=== PATIENT | male | born 1935 | race Caucasian/White ===

== ENCOUNTER → 2018-05-09 | Outpatient (REF) | payer MEDICARE | LOC: M LAB REF 15:50 | DX: L08.9 Local infection of the skin and subcutaneous tissue, unspecified (principal) | CPT/HCPCS: 87186 ==

== ENCOUNTER → 2018-11-09 | Outpatient (REF) | payer MEDICARE ==
[~2018-11-09] MED LIST: /PANT40TA OR; ACET65TA OR; Bupropion Hcl PO; GLUC1000 OR; HUMUINJ SC; HYDR25TA6 OR; INSULANT SC; LIPI10TA OR; LISI20TA5 OR; LISI40TA OR; NIACPOW39 PO; NIASPAN ER PO; PLAV75TA2 OR; WELL100T OR
== END ==
LOC: M LAB REF 15:56
PROVIDERS: ATTEND Nurse Practitioner Family
DX: L08.9 Local infection of the skin and subcutaneous tissue, unspecified (principal)

== ENCOUNTER → 2023-06-06 | Outpatient (REF) | payer MEDICARE ==
[~2023-06-06] MED LIST changes: -/PANT40TA OR; +PROT1TAB2 OR
[2023-06-06 18:50] LABS: APPEARANCE, URINE CLOUDY (CLEAR); BACTERIA, URINE AUTO NEGATIVE (NEGATIVE); BILIRUBIN, URINE AUTO NEGATIVE (NEGATIVE); BLOOD, URINE BLOOD NEGATIVE (NEGATIVE); COLOR, URINE YELLOW (YELLOW); GLUCOSE, URINE (UA) AUTO 1+ mg/dL (NEGATIVE); KETONE, URINE AUTO TRACE mg/dL (NEGATIVE); LEUKOCYTE ESTERASE, URINE AUTO 3+ (NEGATIVE); NITRITE, URINE AUTO NEGATIVE (NEGATIVE); PROTEIN, URINE AUTO 2+ mg/dL (NEGATIVE); RBC, URINE AUTO 23 /HPF (0-3); SPECIFIC GRAVITY URINE AUTO 1.018 (1.002-1.035); SQUAMOUS EPITHELIAL CELL UR AU 3 /HPF (0-6); UROBILINOGEN, URINE AUTO 0.2 mg/dL (0.0-2.0); WBC, URINE AUTO TNTC /HPF (0-3)
== END ==
LOC: M SMT 17:11
PROVIDERS: ATTEND Physician Assistant
DX: N39.0 Urinary tract infection, site not specified (principal)

== ENCOUNTER → 2023-10-08 | Outpatient (CLI) | payer MEDICARE | LOC: M RAD 10:44 | PROVIDERS: ATTEND Physician Assistant Medical | DX: H54.61 Unqualified visual loss, right eye, normal vision left eye (principal) ==

== ENCOUNTER 2024-02-26 19:50 | Inpatient (IN) | payer MEDICARE ==
[~2024-02-26] VITALS: Ht 172.7 cm; Wt 72.7 kg
[2024-02-26] MEDS: NS 1,000 ML IV ONE (20:31)
[2024-02-26 21:02] LABS: BASO # 0.1 10^3/uL (0.0-0.2); BASO % 0.6 % (0.0-1.0); EOS # 0.3 10^3/uL (0.0-0.5); EOS % 1.8 % (0.0-3.0); HEMATOCRIT 35.1 % (42.0-52.0); LYMPH # 1.1 10^3/uL (1.5-5.0); LYMPH % 7.6 % (24.0-44.0); MEAN CORPUSCULAR HEMOGLOBIN 29.7 pg (27.0-33.0); MEAN CORPUSCULAR HGB CONC 34.2 g/dl (32.0-36.5); MEAN CORPUSCULAR VOLUME 86.9 fl (80.0-96.0); MONO # 1.1 10^3/uL (0.0-0.8); MONO % 7.2 % (2.0-8.0); NEUTROPHILS # 12.2 10^3/uL (1.5-8.5); NEUTROPHILS % 82.3 % (36.0-66.0); PLATELET COUNT, AUTOMATED 339 10^3/uL (150-450); RED BLOOD COUNT 4.04 10^6/uL (4.30-6.10); WHITE BLOOD COUNT 14.8 10^3/uL (4.0-10.0)
[2024-02-26 21:02] LABS: ALBUMIN 2.8 G/DL (3.2-5.2); ALKALINE PHOSPHATASE 130 U/L (46-116); ALT/SGPT 16 U/L (7.0-40); AST/SGOT 74 U/L (<34); BILIRUBIN,DIRECT 0.2 MG/DL (<0.4); BILIRUBIN,TOTAL 0.9 MG/DL (0.3-1.2); BLOOD UREA NITROGEN 28 MG/DL (9-23); CALCIUM LEVEL 8.8 MG/DL (8.3-10.6); CARBON DIOXIDE LEVEL 24 MMOL/L (20-31); CHLORIDE LEVEL 97 MMOL/L (98-107); CK-MB VALUE MASS < 1.0 NG/ML (<3.6); CPK CREATINE PHOSPHOKINASE 64 U/L (46-171); CREATININE FOR GFR 1.23 MG/DL (0.70-1.30); GLOMERULAR FILTRATION RATE 59.4 (>35); GLUCOSE, FASTING 261 MG/DL (74-106); LIPASE 25 U/L (12-53); MB/CK RELATIVE INDEX 1.56 (< OR =4); POTASSIUM SERUM 5.3 MMOL/L (3.5-5.1); SODIUM LEVEL 133 MMOL/L (136-145); TOTAL PROTEIN 6.6 G/DL (5.7-8.2)
[2024-02-26 21:43] LABS: CK-MB VALUE MASS < 1.0 NG/ML (<3.6); CPK CREATINE PHOSPHOKINASE 49 U/L (46-171); MB/CK RELATIVE INDEX 2.04 (< OR =4)
[2024-02-26 22:40] LABS: INR 1.13; PROTHROMBIN TIME 14.1 SECONDS (12.5-14.5)
[2024-02-26] MEDS ORDERED: LIDOCAINE W/EPINEPHRINE 1% 20ML VIAL As Ordered ONE (22:40)
[2024-02-26] MEDS: LIDOCAINE W/EPINEPHRINE 1% 20ML VIAL SC ONE (22:46)
[2024-02-27] MEDS ORDERED: DEXTROSE 50% 50ML SYRINGE IV PRN (00:25)
[2024-02-27] MEDS ORDERED: GLUCOSE 4 GM CHEW PO PRN (00:25)
[2024-02-27] MEDS ORDERED: GLUCAGON INJ 1MG VIAL SC PRN (00:25)
[2024-02-27] MEDS: NS 500 ML IV ONE (00:35)
[2024-02-27] MEDS: ACETAMINOPHEN TAB 650MG DOSE (2X325MG) PO ONE (00:36)
[2024-02-27] MEDS ORDERED: FARX1TAB3 PO (00:38)
[2024-02-27] MEDS ORDERED: BRIL90TA PO (00:38)
[2024-02-27] MEDS ORDERED: B-12100010 PO (00:38)
[2024-02-27] MEDS ORDERED: FERR324T21 PO (00:38)
[2024-02-27] MEDS ORDERED: BUPR150T12 PO (00:38)
[2024-02-27] MEDS ORDERED: ASPI81TA26 PO (00:38)
[2024-02-27] MEDS ORDERED: METO1TAB32 PO (00:38)
[2024-02-27] MEDS ORDERED: VITA1CAP25 PO (00:38)
[2024-02-27] MEDS ORDERED: ATOR1TAB19 PO (00:38)
[2024-02-27] MEDS ORDERED: SPIR-10 PO (00:38)
[2024-02-27] MEDS ORDERED: FURO40TA2 PO (00:38)
[2024-02-27] MEDS ORDERED: ENTR1TAB PO (00:38)
[2024-02-27] MEDS ORDERED: TRAZ-186 PO (00:42)
[2024-02-27] MEDS ORDERED: NOVOINJ3 INJ (00:42)
[2024-02-27] MEDS ORDERED: INSULANT INJ (00:42)
[2024-02-27] MEDS ORDERED: SODI1TAB6 PO (00:42)
[2024-02-27] MEDS ORDERED: PRES10CA2 PO (00:42)
[2024-02-27] MEDS ORDERED: METF10004 PO (00:42)
[2024-02-27] MEDS ORDERED: TAMS1CAP17 PO (00:42)
[2024-02-27] MEDS ORDERED: HOME MED LIST COMPLETE! XX SCH (00:45)
[2024-02-27] MEDS: HEPARIN SOD (PORCINE) 5000UNITS/ML 1ML VIAL/SYRINGE SQ SCH (06:08)
[2024-02-27] MEDS ORDERED: SPIRONOLACTONE 12.5MG PER 1/2 TABLET PO SCH (09:00)
[2024-02-27] MEDS ORDERED: MAALOX 30 ML SUSP *UDC PO PRN (09:40)
[2024-02-27] MEDS: ASPIRIN 81MG ENTERIC TABLET PO SCH (09:45)
[2024-02-27] MEDS: INSULIN LISPRO (NovoLOG) PER UNIT SC SCH ×2 (09:45→20:13)
[2024-02-27] MEDS: ATORVASTATIN 10 MG TAB PO SCH (09:45)
[2024-02-27] MEDS: TICAGRELOR 90 MG TABLET (BRILINTA) PO SCH (09:45)
[2024-02-27] MEDS: FUROSEMIDE 40 MG TAB PO SCH (09:46)
[2024-02-27] MEDS: METOPROLOL SUCC *XL* 25MG TAB (TopROL *XL*) PO SCH (09:46)
[2024-02-27] MEDS: SODIUM CHLORIDE 1 GM TAB PO SCH (09:47)
[2024-02-27] MEDS: buPROPion **XL** TABLET 150MG (WELLBUTRIN XL) PO SCH (09:47)
[2024-02-27] MEDS: ENTRESTO 24-26MG TABLET (SACUBITRIL/VALSARTAN) PO SCH (09:47)
[2024-02-27 11:05] LABS: BASO # 0.1 10^3/uL (0.0-0.2); BASO % 0.8 % (0.0-1.0); EOS # 0.3 10^3/uL (0.0-0.5); EOS % 2.3 % (0.0-3.0); HEMATOCRIT 37.4 % (42.0-52.0); HEMOGLOBIN 12.4 g/dl (13.5-17.5); LYMPH # 1.4 10^3/uL (1.5-5.0); MEAN CORPUSCULAR HEMOGLOBIN 29.5 pg (27.0-33.0); MEAN CORPUSCULAR HGB CONC 33.2 g/dl (32.0-36.5); MEAN CORPUSCULAR VOLUME 88.8 fl (80.0-96.0); MONO # 0.7 10^3/uL (0.0-0.8); MONO % 6.2 % (2.0-8.0); NEUTROPHILS # 9.2 10^3/uL (1.5-8.5); NEUTROPHILS % 78.1 % (36.0-66.0); PLATELET COUNT, AUTOMATED 342 10^3/uL (150-450); RED BLOOD COUNT 4.21 10^6/uL (4.30-6.10); WHITE BLOOD COUNT 11.8 10^3/uL (4.0-10.0)
[2024-02-27 11:26] LABS: CALCIUM LEVEL 8.4 MG/DL (8.3-10.6); CREATININE FOR GFR 1.27 MG/DL (0.70-1.30); GLOMERULAR FILTRATION RATE 57.2 (>35); MAGNESIUM LEVEL 1.9 MG/DL (1.8-2.4); POTASSIUM SERUM 5.3 MMOL/L (3.5-5.1)
[2024-02-27 12:10] VITALS: BP 146/65; TEMP 97.2; O2SAT 100
[2024-02-27] MEDS: HumuLIN R (REGULAR) INSULIN (NovoLIN R) **100U/ML** PER UNIT IV STA ×2 (13:13→18:26)
[2024-02-27 15:59] VITALS: BP 119/54; TEMP 98.2; O2SAT 98
[2024-02-27 16:00] VITALS: O2SAT 99
[2024-02-27 17:33] LABS: CALCIUM LEVEL 8.6 MG/DL (8.3-10.6); CREATININE FOR GFR 1.29 MG/DL (0.70-1.30); GLOMERULAR FILTRATION RATE 56.2 (>35); POTASSIUM SERUM 4.3 MMOL/L (3.5-5.1)
[2024-02-27] MEDS: NS 1,000 ML IV ONE (18:26)
[2024-02-27 20:00] VITALS: BP 101/51; TEMP 97.4; O2SAT 99
[2024-02-27] MEDS: TAMSULOSIN 0.4 MG CAP PO SCH (20:12)
[2024-02-27] MEDS: LEVEMIR (INSULIN DETEMIR) 1 UNITS/0.01ML SC SCH (20:12)
[2024-02-27] MEDS: traZODone 50 MG TAB PO SCH (20:12)
[2024-02-27] MEDS: INSULIN LISPRO (NovoLOG) PER UNIT SC STA (21:24)
[2024-02-28] VITALS (10 sets, daily range): BP systolic 93–139; BP diastolic 51–72; TEMP 97.7–98.2; O2SAT 98–100
[2024-02-28] MEDS: ACETAMINOPHEN TAB 650MG DOSE (2X325MG) PO PRN (01:59)
[2024-02-28 05:06] LABS: HEMATOCRIT 30.6 % (42.0-52.0); MEAN CORPUSCULAR HEMOGLOBIN 29.1 pg (27.0-33.0); MEAN CORPUSCULAR VOLUME 88.2 fl (80.0-96.0); PLATELET COUNT, AUTOMATED 309 10^3/uL (150-450); RED BLOOD COUNT 3.47 10^6/uL (4.30-6.10); WHITE BLOOD COUNT 11.1 10^3/uL (4.0-10.0)
[2024-02-28 05:21] LABS: HEMOGLOBIN 10.1 g/dl (13.5-17.5)
[2024-02-28 05:27] LABS: CALCIUM LEVEL 8.2 MG/DL (8.3-10.6); CREATININE FOR GFR 1.36 MG/DL (0.70-1.30); GLOMERULAR FILTRATION RATE 52.9 (>35); MAGNESIUM LEVEL 1.8 MG/DL (1.8-2.4); POTASSIUM SERUM 3.8 MMOL/L (3.5-5.1)
[2024-02-28] MEDS: NS 1,000 ML IV SCH (12:55)
[2024-02-28] MEDS: DOCUSATE SODIUM 100MG CAPSULE PO SCH (23:10)
[2024-02-28] MEDS: NYSTATIN 100,000 UNITS/GM TOPICAL PWD 15GM TOP SCH (23:10)
[2024-02-29 01:40] VITALS: BP 133/56; TEMP 98.4; O2SAT 98
[2024-02-29 05:46] VITALS: BP 130/56; TEMP 98.2; O2SAT 99
[2024-02-29 06:33] LABS: HEMATOCRIT 30.5 % (42.0-52.0); HEMOGLOBIN 10.2 g/dl (13.5-17.5); MEAN CORPUSCULAR HEMOGLOBIN 29.2 pg (27.0-33.0); MEAN CORPUSCULAR HGB CONC 33.4 g/dl (32.0-36.5); MEAN CORPUSCULAR VOLUME 87.4 fl (80.0-96.0); PLATELET COUNT, AUTOMATED 281 10^3/uL (150-450); RED BLOOD COUNT 3.49 10^6/uL (4.30-6.10); WHITE BLOOD COUNT 8.4 10^3/uL (4.0-10.0)
[2024-02-29 07:02] LABS: BLOOD UREA NITROGEN 24 MG/DL (9-23); CARBON DIOXIDE LEVEL 28 MMOL/L (20-31); CHLORIDE LEVEL 101 MMOL/L (98-107); CREATININE FOR GFR 1.04 MG/DL (0.70-1.30); GLOMERULAR FILTRATION RATE > 60.0 (>35); GLUCOSE, FASTING 119 MG/DL (74-106); POTASSIUM SERUM 3.4 MMOL/L (3.5-5.1); SODIUM LEVEL 135 MMOL/L (136-145)
[2024-02-29] MEDS: CYANOCOBALAMIN 500 MCG TAB PO SCH (09:58)
[2024-02-29] MEDS: metFORMIN (GLUCOPHAGE) 1000MG TABLET PO SCH (09:58)
[2024-02-29] MEDS: FERROUS GLUCONATE 324 MG TAB PO SCH (09:58)
[2024-02-29] MEDS: DAPAGLIFLOZIN PROPANEDIOL 10MG TABLET (FARXIGA) PO SCH (09:58)
[2024-02-29] MEDS: POTASSIUM CHLORIDE 10MEQ SR TABLET PO ONE (09:59)
[2024-02-29 10:00] VITALS: BP 118/62; TEMP 97.7; O2SAT 100
[2024-02-29 10:41] VITALS: BP 118/62
[2024-02-29] MEDS: MIRALAX *UNIT DOSE* 17GM PACKET PO PRN (10:43)
[2024-02-29] MEDS ORDERED: FURO40TA2 PO (12:15)
[2024-02-29] MEDS ORDERED: NYST10006 TOP (12:15)
== END 2024-02-29 13:32 | DRG 605 ==
LOC: M ED 19:50 → M ED INP 19:51 → M ICU 02-27 11:58 → EEVIPCON 02-28 13:05 → OBSVTOIN 02-28 13:05 → M MSPAV 02-28 21:42
PROVIDERS: ADMIT Student in an Organized Health Care Education/Training Program; ATTEND Preventive Medicine Undersea and Hyperbaric Medicine
PROC: 0HQ1XZZ Repair Face Skin, External Approach (ICD-10-PCS; principal; 2024-02-26)
DX: S01.81XA Laceration without foreign body of other part of head, initial encounter (principal); E22.2 Syndrome of inappropriate secretion of antidiuretic hormone; N17.9 Acute kidney failure, unspecified; S02.5XXA Fracture of tooth (traumatic), initial encounter for closed fracture; Z66 Do not resuscitate; I10 Essential (primary) hypertension; E11.65 Type 2 diabetes mellitus with hyperglycemia; E78.5 Hyperlipidemia, unspecified; I25.10 Atherosclerotic heart disease of native coronary artery without angina pectoris; F32.A Depression, unspecified; N40.0 Benign prostatic hyperplasia without lower urinary tract symptoms; M19.90 Unspecified osteoarthritis, unspecified site; E87.5 Hyperkalemia; W01.0XXA Fall on same level from slipping, tripping and stumbling without subsequent striking against object, initial encounter; Y92.009 Unspecified place in unspecified non-institutional (private) residence as the place of occurrence of the external cause; I95.9 Hypotension, unspecified; E86.0 Dehydration; Z95.5 Presence of coronary angioplasty implant and graft; Z86.73 Personal history of transient ischemic attack (TIA), and cerebral infarction without residual deficits; Z90.49 Acquired absence of other specified parts of digestive tract; Z98.49 Cataract extraction status, unspecified eye; Z79.82 Long term (current) use of aspirin; Z79.4 Long term (current) use of insulin; Z79.84 Long term (current) use of oral hypoglycemic drugs; Z79.899 Other long term (current) drug therapy; Z88.0 Allergy status to penicillin

== ENCOUNTER → 2024-03-05 | Outpatient (REF) ==
[~2024-03-05] MED LIST changes: +ASPI81TA26 PO; +ATOR1TAB19 PO; +B-12100010 PO; +BRIL90TA PO; +BUPR150T12 PO; +ENTR1TAB PO; +FARX1TAB3 PO; +FERR324T21 PO; +FURO40TA2 PO; +INSULANT INJ; +METF10004 PO; +METO1TAB32 PO; +NOVOINJ3 INJ; +NYST10006 TOP; +PRES10CA2 PO; +SODI1TAB6 PO; +SPIR-10 PO; +TAMS1CAP17 PO; +TRAZ-186 PO; +VITA1CAP25 PO
[2024-03-05 11:39] LABS: HEMATOCRIT 34.3 % (42.0-52.0); HEMOGLOBIN 11.2 g/dl (13.5-17.5); MEAN CORPUSCULAR HEMOGLOBIN 28.6 pg (27.0-33.0); MEAN CORPUSCULAR HGB CONC 32.7 g/dl (32.0-36.5); MEAN CORPUSCULAR VOLUME 87.7 fl (80.0-96.0); PLATELET COUNT, AUTOMATED 382 10^3/uL (150-450); RED BLOOD COUNT 3.91 10^6/uL (4.30-6.10); WHITE BLOOD COUNT 11.7 10^3/uL (4.0-10.0)
[2024-03-05 12:01] LABS: CALCIUM LEVEL 8.5 MG/DL (8.3-10.6); CREATININE FOR GFR 1.76 MG/DL (0.70-1.30); GLOMERULAR FILTRATION RATE 39.3 (>35); POTASSIUM SERUM 5.1 MMOL/L (3.5-5.1)
== END ==
PROVIDERS: ATTEND Physician Assistant
DX: I50.9 Heart failure, unspecified (principal)

== ENCOUNTER → 2024-03-09 | Outpatient (REF) ==
[2024-03-09 10:13] LABS: HEMATOCRIT 33.3 % (42.0-52.0); HEMOGLOBIN 10.8 g/dl (13.5-17.5); MEAN CORPUSCULAR HEMOGLOBIN 28.8 pg (27.0-33.0); MEAN CORPUSCULAR HGB CONC 32.4 g/dl (32.0-36.5); MEAN CORPUSCULAR VOLUME 88.8 fl (80.0-96.0); PLATELET COUNT, AUTOMATED 405 10^3/uL (150-450); RED BLOOD COUNT 3.75 10^6/uL (4.30-6.10); WHITE BLOOD COUNT 10.7 10^3/uL (4.0-10.0)
[2024-03-09 10:45] LABS: CALCIUM LEVEL 9.4 MG/DL (8.3-10.6); CREATININE FOR GFR 1.76 MG/DL (0.70-1.30); GLOMERULAR FILTRATION RATE 39.3 (>35); POTASSIUM SERUM 5.3 MMOL/L (3.5-5.1)
== END ==
PROVIDERS: ATTEND Physician Assistant
DX: N18.9 Chronic kidney disease, unspecified (principal)

== ENCOUNTER 2024-03-14 15:00 | Inpatient (IN) | payer MEDICARE ==
[~2024-03-14] VITALS: Ht 172.7 cm; Wt 69.7 kg
[~2024-03-14 15:00] MED LIST changes: -ACET-907 PO; -BISA10SU27 PR; -CETI-24 PO; -FLEEENE12 PR; -GLUC1KIT IM; -GLUCLIQ37 PO; -JUVEPOW4 PO; -MILKSUS3 PO; -SENN1TAB85 PO; -TRIA1CR80 TOP
[2024-03-14 16:12] LABS: BASO # 0.1 10^3/uL (0.0-0.2); BASO % 0.5 % (0.0-1.0); EOS # 0.2 10^3/uL (0.0-0.5); EOS % 0.7 % (0.0-3.0); HEMATOCRIT 37.4 % (42.0-52.0); HEMOGLOBIN 12.6 g/dl (13.5-17.5); LYMPH # 1.4 10^3/uL (1.5-5.0); LYMPH % 6.6 % (24.0-44.0); MEAN CORPUSCULAR HEMOGLOBIN 29.1 pg (27.0-33.0); MEAN CORPUSCULAR HGB CONC 33.7 g/dl (32.0-36.5); MEAN CORPUSCULAR VOLUME 86.4 fl (80.0-96.0); MONO # 1.2 10^3/uL (0.0-0.8); MONO % 5.6 % (2.0-8.0); NEUTROPHILS # 18.5 10^3/uL (1.5-8.5); NEUTROPHILS % 85.6 % (36.0-66.0); PLATELET COUNT, AUTOMATED 502 10^3/uL (150-450); RED BLOOD COUNT 4.33 10^6/uL (4.30-6.10); WHITE BLOOD COUNT 21.5 10^3/uL (4.0-10.0)
[2024-03-14 16:17] LABS: APPEARANCE, URINE CLEAR (CLEAR); BACTERIA, URINE AUTO NEGATIVE (NEGATIVE); BILIRUBIN, URINE AUTO NEGATIVE (NEGATIVE); BLOOD, URINE BLOOD NEGATIVE (NEGATIVE); COLOR, URINE YELLOW (YELLOW); GLUCOSE, URINE (UA) AUTO 3+ mg/dL (NEGATIVE); KETONE, URINE AUTO NEGATIVE (NEGATIVE); LEUKOCYTE ESTERASE, URINE AUTO NEGATIVE (NEGATIVE); NITRITE, URINE AUTO NEGATIVE (NEGATIVE); PROTEIN, URINE AUTO NEGATIVE (NEGATIVE); RBC, URINE AUTO 1 /HPF (0-3); SPECIFIC GRAVITY URINE AUTO 1.011 (1.002-1.035); SQUAMOUS EPITHELIAL CELL UR AU 0 /HPF (0-6); UROBILINOGEN, URINE AUTO 0.2 mg/dL (0.0-2.0); WBC, URINE AUTO 2 /HPF (0-3)
[2024-03-14] MEDS: NS 500 ML IV ONE (16:23)
[2024-03-14 16:33] LABS: ALBUMIN 3.2 G/DL (3.2-5.2); ALKALINE PHOSPHATASE 146 U/L (46-116); ALT/SGPT 15 U/L (7.0-40); AST/SGOT 43 U/L (<34); BILIRUBIN,DIRECT 0.2 MG/DL (<0.4); BILIRUBIN,TOTAL 0.8 MG/DL (0.3-1.2); BLOOD UREA NITROGEN 100 MG/DL (9-23); CALCIUM LEVEL 9.5 MG/DL (8.3-10.6); CARBON DIOXIDE LEVEL 25 MMOL/L (20-31); CHLORIDE LEVEL 92 MMOL/L (98-107); CK-MB VALUE MASS < 1.0 NG/ML (<3.6); CREATININE FOR GFR 1.95 MG/DL (0.70-1.30); GLOMERULAR FILTRATION RATE 34.9 (>35); GLUCOSE, FASTING 273 MG/DL (74-106); POTASSIUM SERUM 5.8 MMOL/L (3.5-5.1); SODIUM LEVEL 125 MMOL/L (136-145); TOTAL PROTEIN 6.8 G/DL (5.7-8.2)
[2024-03-14 16:36] LABS: CPK CREATINE PHOSPHOKINASE 44 U/L (46-171); MB/CK RELATIVE INDEX 2.27 (< OR =4)
[2024-03-14 16:50] LABS: C REACTIVE PROTEIN QUANTITATIV < 0.40 MG/DL (<1.0)
[2024-03-14 17:04] LABS: PROCALCITONIN 0.12 ng/ml
[2024-03-14 17:50] LABS: PARTIAL THROMBOPLASTIN TIME 25.3 SECONDS (24.8-34.2)
[2024-03-14 17:56] LABS: INR 1.04; PROTHROMBIN TIME 13.3 SECONDS (12.5-14.5)
[2024-03-14 17:57] LABS: TOTAL PROTEIN,RANDOM URINE 11.1 MG/DL (0.0-14.0)
[2024-03-14 18:02] LABS: CREATININE,RANDOM URINE 35.8 MG/DL
[2024-03-14 18:11] LABS: OSMOLALITY SERUM 317 MOSM/KG (280-301)
[2024-03-14] MEDS: PATIROMER SORBITEX CALCIUM 8.4 GM POWDER PACKET (VELTASSA) PO ONE (18:29)
[2024-03-14] MEDS: INSULIN LISPRO (NovoLOG) PER UNIT SC SCH (21:00)
[2024-03-14] MEDS ORDERED: GLUCOSE 4 GM CHEW PO PRN (21:00)
[2024-03-14] MEDS ORDERED: GLUCAGON INJ 1MG VIAL SC PRN (21:00)
[2024-03-14] MEDS ORDERED: DEXTROSE 50% 50ML SYRINGE IV PRN (21:00)
[2024-03-14] MEDS ORDERED: ONDANSETRON 4MG 2ML VIAL IV PRN (21:00)
[2024-03-14] MEDS: NS 1,000 ML IV SCH (22:12)
[2024-03-14] MEDS: CEFEPIME HCL 1 GM in D5W MINI-BAG PLUS 50 ML IV SCH (22:12)
[2024-03-14] MEDS ORDERED: SENN1TAB85 PO (23:34)
[2024-03-14] MEDS ORDERED: GLUCLIQ37 PO (23:34)
[2024-03-14] MEDS ORDERED: BISA10SU27 PR (23:34)
[2024-03-14] MEDS ORDERED: FURO40TA2 PO (23:34)
[2024-03-14] MEDS ORDERED: GLUC1KIT IM (23:34)
[2024-03-14] MEDS ORDERED: TRIA1CR80 TOP (23:34)
[2024-03-14] MEDS ORDERED: JUVEPOW4 PO (23:34)
[2024-03-14] MEDS ORDERED: FLEEENE12 PR (23:34)
[2024-03-14] MEDS ORDERED: ACET-907 PO (23:34)
[2024-03-14] MEDS ORDERED: MILKSUS3 PO (23:34)
[2024-03-14] MEDS ORDERED: CETI-24 PO (23:34)
[2024-03-14] MEDS ORDERED: HOME MED LIST COMPLETE! XX SCH (23:35)
[2024-03-15] VITALS (9 sets, daily range): BP systolic 96–131; BP diastolic 51–62; TEMP 96.6–98.1; O2SAT 99–100
[2024-03-15 00:22] LABS: CALCIUM LEVEL 7.2 MG/DL (8.3-10.6); CREATININE FOR GFR 1.71 MG/DL (0.70-1.30); GLOMERULAR FILTRATION RATE 40.6 (>35); POTASSIUM SERUM 4.8 MMOL/L (3.5-5.1)
[2024-03-15] MEDS: SENOKOT S TAB PO SCH (01:05)
[2024-03-15] MEDS: TICAGRELOR 90 MG TABLET (BRILINTA) PO SCH (01:06)
[2024-03-15] MEDS: traZODone 50 MG TAB PO SCH (01:57)
[2024-03-15] MEDS: TAMSULOSIN 0.4 MG CAP PO SCH (01:57)
[2024-03-15] MEDS: LEVEMIR (INSULIN DETEMIR) 1 UNITS/0.01ML SC ONE (01:58)
[2024-03-15] MEDS: HEPARIN SOD (PORCINE) 5000UNITS/ML 1ML VIAL/SYRINGE SQ SCH (05:51)
[2024-03-15 06:11] LABS: HEMATOCRIT 29.8 % (42.0-52.0); MEAN CORPUSCULAR HEMOGLOBIN 29.2 pg (27.0-33.0); MEAN CORPUSCULAR HGB CONC 33.6 g/dl (32.0-36.5); MEAN CORPUSCULAR VOLUME 86.9 fl (80.0-96.0); RED BLOOD COUNT 3.43 10^6/uL (4.30-6.10); WHITE BLOOD COUNT 12.4 10^3/uL (4.0-10.0)
[2024-03-15 06:13] LABS: PLATELET COUNT, AUTOMATED 346 10^3/uL (150-450)
[2024-03-15 06:33] LABS: PROCALCITONIN 0.12 ng/ml
[2024-03-15 06:34] LABS: ALBUMIN 2.6 G/DL (3.2-5.2); ALKALINE PHOSPHATASE 160 U/L (46-116); ALT/SGPT 13 U/L (7.0-40); AST/SGOT 25 U/L (<34); BILIRUBIN,TOTAL 0.9 MG/DL (0.3-1.2); BLOOD UREA NITROGEN 85 MG/DL (9-23); CARBON DIOXIDE LEVEL 24 MMOL/L (20-31); CHLORIDE LEVEL 96 MMOL/L (98-107); CREATININE FOR GFR 1.72 MG/DL (0.70-1.30); GLOMERULAR FILTRATION RATE 40.3 (>35); GLUCOSE, FASTING 352 MG/DL (74-106); MAGNESIUM LEVEL 2.1 MG/DL (1.8-2.4); POTASSIUM SERUM 5.2 MMOL/L (3.5-5.1); SODIUM LEVEL 127 MMOL/L (136-145); TOTAL PROTEIN 5.4 G/DL (5.7-8.2)
[2024-03-15 08:52] LABS: C REACTIVE PROTEIN QUANTITATIV < 0.40 MG/DL (<1.0)
[2024-03-15] MEDS: METOPROLOL SUCC *XL* 25MG TAB (TopROL *XL*) PO SCH (09:00)
[2024-03-15 09:36] LABS: ERYTHROCYTE SEDIMENTATION RATE 18 mm/hr (0-20)
[2024-03-15] MEDS: CYANOCOBALAMIN 500 MCG TAB PO SCH (09:38)
[2024-03-15] MEDS: buPROPion **XL** TABLET 150MG (WELLBUTRIN XL) PO SCH (09:38)
[2024-03-15] MEDS: ATORVASTATIN 10 MG TAB PO SCH (09:39)
[2024-03-15] MEDS: ASPIRIN 81MG ENTERIC TABLET PO SCH (09:39)
[2024-03-15] MEDS: INSULIN LISPRO (NovoLOG) PER UNIT SC SCH (09:48)
[2024-03-15] MEDS ORDERED: INSULIN LISPRO (NovoLOG) PER UNIT SC ONE (12:10)
[2024-03-15 12:41] LABS: CREATININE FOR GFR 1.73 MG/DL (0.70-1.30); GLOMERULAR FILTRATION RATE 40.1 (>35)
[2024-03-15] MEDS: LEVEMIR (INSULIN DETEMIR) 1 UNITS/0.01ML SC SCH (12:42)
[2024-03-15] MEDS: INSULIN LISPRO (NovoLOG) PER UNIT SC ONE (12:42)
[2024-03-15] MEDS: ACETAMINOPHEN TAB 650MG DOSE (2X325MG) PO PRN (18:54)
[2024-03-15] MEDS ORDERED: LEVEMIR (INSULIN DETEMIR) 1 UNITS/0.01ML SC SCH (21:00)
[2024-03-15] MEDS: DIAPER RELIEF PASTE (DESITIN) 60GM TOP SCH (21:02)
[2024-03-16] VITALS (8 sets, daily range): BP systolic 88–129; BP diastolic 53–61; TEMP 97.2–98.6; O2SAT 95–100
[2024-03-16 08:00] LABS: BASO # 0.1 10^3/uL (0.0-0.2); BASO % 0.6 % (0.0-1.0); EOS # 0.3 10^3/uL (0.0-0.5); EOS % 4.2 % (0.0-3.0); HEMATOCRIT 26.8 % (42.0-52.0); HEMOGLOBIN 8.9 g/dl (13.5-17.5); LYMPH # 1.3 10^3/uL (1.5-5.0); LYMPH % 15.5 % (24.0-44.0); MEAN CORPUSCULAR HEMOGLOBIN 29.2 pg (27.0-33.0); MEAN CORPUSCULAR HGB CONC 33.2 g/dl (32.0-36.5); MEAN CORPUSCULAR VOLUME 87.9 fl (80.0-96.0); MONO # 0.5 10^3/uL (0.0-0.8); MONO % 6.6 % (2.0-8.0); NEUTROPHILS # 5.9 10^3/uL (1.5-8.5); NEUTROPHILS % 72.5 % (36.0-66.0); PLATELET COUNT, AUTOMATED 267 10^3/uL (150-450); RED BLOOD COUNT 3.05 10^6/uL (4.30-6.10); WHITE BLOOD COUNT 8.2 10^3/uL (4.0-10.0)
[2024-03-16 08:24] LABS: ALBUMIN 2.4 G/DL (3.2-5.2); BILIRUBIN,TOTAL 0.8 MG/DL (0.3-1.2); CALCIUM LEVEL 7.9 MG/DL (8.3-10.6); CREATININE FOR GFR 1.45 MG/DL (0.70-1.30); GLOMERULAR FILTRATION RATE 49.1 (>35); MAGNESIUM LEVEL 1.9 MG/DL (1.8-2.4); POTASSIUM SERUM 4.5 MMOL/L (3.5-5.1)
[2024-03-16] MEDS: BISACODYL 10MG SUPP PR PRN (20:26)
[2024-03-16] MEDS: RAMELTEON 8 MG TAB (ROZEREM) PO PRN (21:46)
[2024-03-17] MEDS: LIDOCAINE 5% (LIDODERM) PATCH TD ONE (01:32)
[2024-03-17 06:00] VITALS: BP_SYST 112; BP_SYST 118; BP_DIAS 54; BP_DIAS 59; TEMP 97.9; TEMP 98.1; O2SAT 95
[2024-03-17 06:12] LABS: BASO # 0.1 10^3/uL (0.0-0.2); BASO % 0.5 % (0.0-1.0); EOS # 0.4 10^3/uL (0.0-0.5); HEMATOCRIT 25.2 % (42.0-52.0); HEMOGLOBIN 8.7 g/dl (13.5-17.5); LYMPH # 1.6 10^3/uL (1.5-5.0); LYMPH % 15.7 % (24.0-44.0); MEAN CORPUSCULAR HEMOGLOBIN 29.6 pg (27.0-33.0); MEAN CORPUSCULAR HGB CONC 34.5 g/dl (32.0-36.5); MEAN CORPUSCULAR VOLUME 85.7 fl (80.0-96.0); MONO # 0.7 10^3/uL (0.0-0.8); MONO % 6.9 % (2.0-8.0); NEUTROPHILS # 7.4 10^3/uL (1.5-8.5); NEUTROPHILS % 72.2 % (36.0-66.0); PLATELET COUNT, AUTOMATED 285 10^3/uL (150-450); RED BLOOD COUNT 2.94 10^6/uL (4.30-6.10); WHITE BLOOD COUNT 10.2 10^3/uL (4.0-10.0)
[2024-03-17 06:38] LABS: ALBUMIN 2.2 G/DL (3.2-5.2); BILIRUBIN,TOTAL 0.6 MG/DL (0.3-1.2); CALCIUM LEVEL 8.3 MG/DL (8.3-10.6); CREATININE FOR GFR 1.24 MG/DL (0.70-1.30); GLOMERULAR FILTRATION RATE 58.8 (>35); MAGNESIUM LEVEL 1.8 MG/DL (1.8-2.4); POTASSIUM SERUM 4.6 MMOL/L (3.5-5.1); TOTAL PROTEIN 4.8 G/DL (5.7-8.2)
[2024-03-17] MEDS: METOPROLOL SUCC *XL* 12.5MG PER 1/2 TAB (TopROL *XL*) PO SCH (08:19)
[2024-03-17 08:30] VITALS: BP_SYST 118; BP_SYST 123; BP_SYST 127; BP_DIAS 53; BP_DIAS 54
[2024-03-17 10:00] VITALS: BP 133/54; TEMP 97.5; O2SAT 96
[2024-03-17] MEDS ORDERED: PILL CUTTER 1 EACH XX PRN (10:45)
[2024-03-17] MEDS: DAPAGLIFLOZIN PROPANEDIOL 10MG TABLET (FARXIGA) PO SCH (12:46)
[2024-03-17] MEDS: FUROSEMIDE 20 MG TAB PO SCH (12:47)
[2024-03-17] MEDS: SPIRONOLACTONE 12.5MG PER 1/2 TABLET PO SCH (12:47)
[2024-03-17 14:00] VITALS: BP 130/62; TEMP 97.7; O2SAT 100
[2024-03-17 18:00] VITALS: BP 127/55; TEMP 97.3; O2SAT 97
[2024-03-17] MEDS: TAMSULOSIN 0.4 MG CAP PO SCH (20:03)
[2024-03-17] MEDS: LIDOCAINE 5% (LIDODERM) PATCH TD PRN (21:24)
[2024-03-17 22:00] VITALS: BP 120/56; TEMP 97.5; O2SAT 93
[2024-03-18] VITALS (7 sets, daily range): BP systolic 91–137; BP diastolic 49–58; TEMP 97.9–98.6; O2SAT 94–100
[2024-03-18 06:27] LABS: BASO # 0.1 10^3/uL (0.0-0.2); BASO % 0.5 % (0.0-1.0); EOS # 0.3 10^3/uL (0.0-0.5); EOS % 2.8 % (0.0-3.0); HEMATOCRIT 28.5 % (42.0-52.0); HEMOGLOBIN 9.7 g/dl (13.5-17.5); LYMPH # 1.8 10^3/uL (1.5-5.0); LYMPH % 16.7 % (24.0-44.0); MEAN CORPUSCULAR HEMOGLOBIN 29.7 pg (27.0-33.0); MEAN CORPUSCULAR VOLUME 87.2 fl (80.0-96.0); MONO # 0.7 10^3/uL (0.0-0.8); MONO % 6.4 % (2.0-8.0); NEUTROPHILS # 7.7 10^3/uL (1.5-8.5); PLATELET COUNT, AUTOMATED 294 10^3/uL (150-450); RED BLOOD COUNT 3.27 10^6/uL (4.30-6.10); WHITE BLOOD COUNT 10.5 10^3/uL (4.0-10.0)
[2024-03-18 06:57] LABS: ALBUMIN 2.5 G/DL (3.2-5.2); BILIRUBIN,TOTAL 0.7 MG/DL (0.3-1.2); CALCIUM LEVEL 8.4 MG/DL (8.3-10.6); CREATININE FOR GFR 1.24 MG/DL (0.70-1.30); GLOMERULAR FILTRATION RATE 58.8 (>35); MAGNESIUM LEVEL 1.8 MG/DL (1.8-2.4); POTASSIUM SERUM 4.6 MMOL/L (3.5-5.1); TOTAL PROTEIN 5.3 G/DL (5.7-8.2)
[2024-03-18 07:59] LABS: ERYTHROCYTE SEDIMENTATION RATE 16 mm/hr (0-20)
[2024-03-18 08:01] LABS: C REACTIVE PROTEIN QUANTITATIV 0.5 MG/DL (<1.0)
[2024-03-18 08:10] LABS: PROCALCITONIN 0.1 ng/ml
[2024-03-18] MEDS: LR 250 ML IV ONE (08:50)
[2024-03-18] MEDS: LEVEMIR (INSULIN DETEMIR) 1 UNITS/0.01ML SC SCH (08:51)
[2024-03-18] MEDS ORDERED: LEVEMIR (INSULIN DETEMIR) 1 UNITS/0.01ML SC SCH (09:00)
[2024-03-18] MEDS: INSULIN LISPRO (NovoLOG) PER UNIT SC ONE (13:19)
[2024-03-19] VITALS (8 sets, daily range): BP systolic 68–134; BP diastolic 46–68; TEMP 97.5–98.4; O2SAT 96–100
[2024-03-19] MEDS: FUROSEMIDE 10MG PER 1/2 TABLET PO SCH (08:13)
[2024-03-19] MEDS: GABAPENTIN 100 MG CAP PO SCH (12:31)
[2024-03-20] VITALS (9 sets, daily range): BP systolic 88–115; BP diastolic 45–61; TEMP 97.9–99.1; O2SAT 95–100
[2024-03-20 07:25] LABS: BASO # 0.1 10^3/uL (0.0-0.2); BASO % 0.7 % (0.0-1.0); EOS # 0.3 10^3/uL (0.0-0.5); EOS % 3.4 % (0.0-3.0); LYMPH # 1.9 10^3/uL (1.5-5.0); LYMPH % 19.7 % (24.0-44.0); MEAN CORPUSCULAR HEMOGLOBIN 29.6 pg (27.0-33.0); MEAN CORPUSCULAR HGB CONC 33.3 g/dl (32.0-36.5); MEAN CORPUSCULAR VOLUME 88.8 fl (80.0-96.0); MONO # 0.7 10^3/uL (0.0-0.8); MONO % 6.9 % (2.0-8.0); NEUTROPHILS # 6.6 10^3/uL (1.5-8.5); NEUTROPHILS % 68.8 % (36.0-66.0); PLATELET COUNT, AUTOMATED 263 10^3/uL (150-450); RED BLOOD COUNT 3.04 10^6/uL (4.30-6.10); WHITE BLOOD COUNT 9.6 10^3/uL (4.0-10.0)
[2024-03-20 07:54] LABS: ALBUMIN 2.4 G/DL (3.2-5.2); BILIRUBIN,TOTAL 0.7 MG/DL (0.3-1.2); CALCIUM LEVEL 8.3 MG/DL (8.3-10.6); CREATININE FOR GFR 1.48 MG/DL (0.70-1.30); MAGNESIUM LEVEL 1.9 MG/DL (1.8-2.4); POTASSIUM SERUM 5.4 MMOL/L (3.5-5.1); TOTAL PROTEIN 5.1 G/DL (5.7-8.2)
[2024-03-20] MEDS: ALBUTEROL SULFATE 2.5MG/0.5ML INH NEB SOLN NEB ONE (13:11)
[2024-03-20 17:58] LABS: CALCIUM LEVEL 8.4 MG/DL (8.3-10.6); CREATININE FOR GFR 1.36 MG/DL (0.70-1.30); GLOMERULAR FILTRATION RATE 52.9 (>35); POTASSIUM SERUM 4.8 MMOL/L (3.5-5.1)
[2024-03-21] VITALS (7 sets, daily range): BP systolic 72–120; BP diastolic 42–56; TEMP 97.9–98.4; O2SAT 86–100
[2024-03-21 08:30] LABS: BASO # 0.1 10^3/uL (0.0-0.2); BASO % 0.5 % (0.0-1.0); EOS # 0.3 10^3/uL (0.0-0.5); EOS % 2.5 % (0.0-3.0); HEMATOCRIT 25.6 % (42.0-52.0); HEMOGLOBIN 8.4 g/dl (13.5-17.5); LYMPH # 1.3 10^3/uL (1.5-5.0); LYMPH % 12.9 % (24.0-44.0); MEAN CORPUSCULAR HGB CONC 32.8 g/dl (32.0-36.5); MEAN CORPUSCULAR VOLUME 88.3 fl (80.0-96.0); MONO # 0.8 10^3/uL (0.0-0.8); MONO % 8.2 % (2.0-8.0); NEUTROPHILS # 7.7 10^3/uL (1.5-8.5); NEUTROPHILS % 75.3 % (36.0-66.0); PLATELET COUNT, AUTOMATED 241 10^3/uL (150-450); WHITE BLOOD COUNT 10.2 10^3/uL (4.0-10.0)
[2024-03-21 08:54] LABS: CALCIUM LEVEL 8.1 MG/DL (8.3-10.6); CREATININE FOR GFR 1.48 MG/DL (0.70-1.30); POTASSIUM SERUM 6.1 MMOL/L (3.5-5.1)
[2024-03-21 08:59] LABS: ALBUMIN 2.3 G/DL (3.2-5.2); BILIRUBIN,TOTAL 0.8 MG/DL (0.3-1.2); CALCIUM LEVEL 8.1 MG/DL (8.3-10.6); CREATININE FOR GFR 1.47 MG/DL (0.70-1.30); GLOMERULAR FILTRATION RATE 48.4 (>35); MAGNESIUM LEVEL 1.9 MG/DL (1.8-2.4); POTASSIUM SERUM 6.1 MMOL/L (3.5-5.1); TOTAL PROTEIN 5.1 G/DL (5.7-8.2)
[2024-03-21] MEDS: ALBUTEROL SULFATE 2.5MG/0.5ML INH NEB SOLN NEB STA (09:23)
[2024-03-21] MEDS: CALCIUM GLUCONATE 1,000 MG in D5W MINI-BAG PLUS 100 ML IV STA (09:35)
[2024-03-21] MEDS: HumuLIN R (REGULAR) INSULIN (NovoLIN R) **100U/ML** PER UNIT IV STA (09:35)
[2024-03-21 11:47] LABS: CALCIUM LEVEL 8.9 MG/DL (8.3-10.6); CREATININE FOR GFR 1.46 MG/DL (0.70-1.30); GLOMERULAR FILTRATION RATE 48.7 (>35)
[2024-03-21] MEDS: INSULIN LISPRO (NovoLOG) PER UNIT SC STA (12:28)
[2024-03-21 13:15] LABS: HEMOGLOBIN A1c 8.4 % (4.0-6.0)
[2024-03-21 16:43] LABS: CALCIUM LEVEL 8.8 MG/DL (8.3-10.6); CREATININE FOR GFR 1.43 MG/DL (0.70-1.30); GLOMERULAR FILTRATION RATE 49.9 (>35); POTASSIUM SERUM 5.1 MMOL/L (3.5-5.1)
[2024-03-21] MEDS: INSULIN LISPRO (NovoLOG) PER UNIT SC SCH ×3 (18:36→21:00)
[2024-03-22] VITALS: BP 99/53; TEMP 98.4; O2SAT 99
[2024-03-22 03:58] VITALS: BP 101/52; TEMP 97.9; O2SAT 98
[2024-03-22 06:12] LABS: CALCIUM LEVEL 8.7 MG/DL (8.3-10.6); CREATININE FOR GFR 1.45 MG/DL (0.70-1.30); GLOMERULAR FILTRATION RATE 49.1 (>35); MAGNESIUM LEVEL 1.9 MG/DL (1.8-2.4)
[2024-03-22 08:00] VITALS: BP 101/50; TEMP 98.4; O2SAT 99
[2024-03-22 09:00] VITALS: BP_SYST 101; BP_SYST 103; BP_SYST 89; BP_DIAS 49; BP_DIAS 50; BP_DIAS 51
[2024-03-22] MEDS: MIDODRINE 5 MG TAB PO ONE (10:24)
[2024-03-22] MEDS ORDERED: INSUHUMDS SC ×2 (11:45)
[2024-03-22] MEDS ORDERED: INSUDET SC (11:45)
[2024-03-22] MEDS ORDERED: LIDO5TD TD (11:45)
[2024-03-22] MEDS ORDERED: Petrolatum,White TOP (11:45)
[2024-03-22] MEDS ORDERED: MIDO2.5T PO (11:45)
[2024-03-22 12:00] VITALS: BP 120/57; TEMP 98.4; O2SAT 100
[2024-03-22] MEDS: MIDODRINE 2.5 MG TAB PO SCH (12:00)
== END 2024-03-22 13:50 | DRG 683 ==
LOC: M ED 15:00 → EDBD 15:00 → M PCU 20:51 → M ED INP 20:51 → M PCU 03-15 01:28 → M MSPAV 03-16 21:31
PROVIDERS: ADMIT Preventive Medicine Undersea and Hyperbaric Medicine; ATTEND Student in an Organized Health Care Education/Training Program
DX: N17.9 Acute kidney failure, unspecified (principal); E87.20 Acidosis, unspecified; E87.1 Hypo-osmolality and hyponatremia; I50.22 Chronic systolic (congestive) heart failure; I13.0 Hypertensive heart and chronic kidney disease with heart failure and stage 1 through stage 4 chronic kidney disease, or unspecified chronic kidney disease; I25.10 Atherosclerotic heart disease of native coronary artery without angina pectoris; I12.9 Hypertensive chronic kidney disease with stage 1 through stage 4 chronic kidney disease, or unspecified chronic kidney disease; E78.5 Hyperlipidemia, unspecified; E11.22 Type 2 diabetes mellitus with diabetic chronic kidney disease; F32.A Depression, unspecified; N40.1 Benign prostatic hyperplasia with lower urinary tract symptoms; M19.90 Unspecified osteoarthritis, unspecified site; N18.9 Chronic kidney disease, unspecified; R33.9 Retention of urine, unspecified; I95.1 Orthostatic hypotension; K59.00 Constipation, unspecified; I25.5 Ischemic cardiomyopathy; E87.5 Hyperkalemia; E11.649 Type 2 diabetes mellitus with hypoglycemia without coma; Z66 Do not resuscitate; E11.65 Type 2 diabetes mellitus with hyperglycemia; E86.0 Dehydration; E86.1 Hypovolemia; R11.0 Nausea; E11.42 Type 2 diabetes mellitus with diabetic polyneuropathy; R53.1 Weakness; Z95.5 Presence of coronary angioplasty implant and graft; Z86.73 Personal history of transient ischemic attack (TIA), and cerebral infarction without residual deficits; Z86.010 Personal history of colon polyps; Z98.49 Cataract extraction status, unspecified eye; Z90.49 Acquired absence of other specified parts of digestive tract; Z79.4 Long term (current) use of insulin; Z79.82 Long term (current) use of aspirin; Z79.899 Other long term (current) drug therapy; Z88.0 Allergy status to penicillin

== ENCOUNTER → 2024-03-14 | Outpatient (REF) ==
[~2024-03-14] MED LIST changes: +ACET-907 PO; +BISA10SU27 PR; +CETI-24 PO; +FLEEENE12 PR; +GLUC1KIT IM; +GLUCLIQ37 PO; -INSULANT INJ; +JUVEPOW4 PO; +MILKSUS3 PO; -NOVOINJ3 INJ; +NOVOINJ3 SC; +SENN1TAB85 PO; +TRIA1CR80 TOP
[2024-03-14 11:53] LABS: HEMATOCRIT 33.9 % (42.0-52.0); HEMOGLOBIN 11.2 g/dl (13.5-17.5); MEAN CORPUSCULAR HEMOGLOBIN 28.9 pg (27.0-33.0); MEAN CORPUSCULAR VOLUME 87.6 fl (80.0-96.0); PLATELET COUNT, AUTOMATED 404 10^3/uL (150-450); RED BLOOD COUNT 3.87 10^6/uL (4.30-6.10); WHITE BLOOD COUNT 12.8 10^3/uL (4.0-10.0)
[2024-03-14 12:22] LABS: CALCIUM LEVEL 8.7 MG/DL (8.3-10.6); CREATININE FOR GFR 1.98 MG/DL (0.70-1.30); GLOMERULAR FILTRATION RATE 34.3 (>35); POTASSIUM SERUM 5.7 MMOL/L (3.5-5.1)
== END ==
PROVIDERS: ATTEND Internal Medicine
DX: I50.9 Heart failure, unspecified (principal); M19.011 Primary osteoarthritis, right shoulder; M19.012 Primary osteoarthritis, left shoulder

== ENCOUNTER → 2024-03-15 | Outpatient (REF) ==
[~2024-03-15] MED LIST changes: +ACET-907 PO; +BISA10SU27 PR; +CETI-24 PO; +FLEEENE12 PR; +GLUC1KIT IM; +GLUCLIQ37 PO; +JUVEPOW4 PO; +MILKSUS3 PO; +SENN1TAB85 PO; +TRIA1CR80 TOP
== END ==
PROVIDERS: ATTEND Physician Assistant
DX: I50.9 Heart failure, unspecified (principal); Z53.8 Procedure and treatment not carried out for other reasons

== ENCOUNTER → 2024-03-16 | Outpatient (REF) | PROVIDERS: ATTEND Physician Assistant | DX: I50.9 Heart failure, unspecified (principal); Z53.8 Procedure and treatment not carried out for other reasons ==

== ENCOUNTER → 2024-03-19 | Outpatient (REF) | PROVIDERS: ATTEND Physician Assistant | DX: I50.9 Heart failure, unspecified (principal); Z53.8 Procedure and treatment not carried out for other reasons ==

== ENCOUNTER → 2024-03-26 | Outpatient (REF) ==
[~2024-03-26] MED LIST changes: +INSUDET SC; +INSUHUMDS SC; +LIDO5TD TD; +MIDO2.5T PO; +Petrolatum,White TOP
[2024-03-26 12:29] LABS: HEMATOCRIT 32.8 % (42.0-52.0); HEMOGLOBIN 10.9 g/dl (13.5-17.5); MEAN CORPUSCULAR HGB CONC 33.2 g/dl (32.0-36.5); MEAN CORPUSCULAR VOLUME 90.4 fl (80.0-96.0); PLATELET COUNT, AUTOMATED 357 10^3/uL (150-450); RED BLOOD COUNT 3.63 10^6/uL (4.30-6.10); WHITE BLOOD COUNT 12.2 10^3/uL (4.0-10.0)
[2024-03-26 13:04] LABS: CALCIUM LEVEL 9.7 MG/DL (8.3-10.6); CREATININE FOR GFR 1.34 MG/DL (0.70-1.30); GLOMERULAR FILTRATION RATE 53.8 (>35); MAGNESIUM LEVEL 1.8 MG/DL (1.8-2.4); POTASSIUM SERUM 5.4 MMOL/L (3.5-5.1)
== END ==
PROVIDERS: ATTEND Physician Assistant
DX: E11.9 Type 2 diabetes mellitus without complications (principal)

== ENCOUNTER → 2024-03-27 | Outpatient (REF) | PROVIDERS: ATTEND Physician Assistant | DX: R73.09 Other abnormal glucose (principal) ==

== ENCOUNTER → 2024-03-29 | Outpatient (REF) ==
[2024-03-29 10:38] LABS: HEMATOCRIT 31.5 % (42.0-52.0); HEMOGLOBIN 10.2 g/dl (13.5-17.5); MEAN CORPUSCULAR HEMOGLOBIN 29.1 pg (27.0-33.0); MEAN CORPUSCULAR HGB CONC 32.4 g/dl (32.0-36.5); MEAN CORPUSCULAR VOLUME 89.7 fl (80.0-96.0); PLATELET COUNT, AUTOMATED 382 10^3/uL (150-450); RED BLOOD COUNT 3.51 10^6/uL (4.30-6.10); WHITE BLOOD COUNT 11.8 10^3/uL (4.0-10.0)
[2024-03-29 11:12] LABS: CALCIUM LEVEL 9.1 MG/DL (8.3-10.6); POTASSIUM SERUM 5.3 MMOL/L (3.5-5.1)
[2024-03-30 12:28] LABS: CREATININE FOR GFR 1.37 MG/DL (0.70-1.30); GLOMERULAR FILTRATION RATE 52.4 (>35)
== END ==
PROVIDERS: ATTEND Physician Assistant
DX: R11.10 Vomiting, unspecified (principal)

== ENCOUNTER → 2024-04-02 | Outpatient (REF) ==
[2024-04-02 11:57] LABS: HEMATOCRIT 27.9 % (42.0-52.0); HEMOGLOBIN 9.2 g/dl (13.5-17.5); MEAN CORPUSCULAR HEMOGLOBIN 29.4 pg (27.0-33.0); MEAN CORPUSCULAR VOLUME 89.1 fl (80.0-96.0); PLATELET COUNT, AUTOMATED 373 10^3/uL (150-450); RED BLOOD COUNT 3.13 10^6/uL (4.30-6.10); WHITE BLOOD COUNT 9.8 10^3/uL (4.0-10.0)
[2024-04-02 12:32] LABS: CALCIUM LEVEL 8.6 MG/DL (8.3-10.6); CREATININE FOR GFR 1.23 MG/DL (0.70-1.30); GLOMERULAR FILTRATION RATE 59.4 (>35); MAGNESIUM LEVEL 1.9 MG/DL (1.8-2.4); POTASSIUM SERUM 5.5 MMOL/L (3.5-5.1)
== END ==
PROVIDERS: ATTEND Physician Assistant
DX: E11.9 Type 2 diabetes mellitus without complications (principal)

== ENCOUNTER → 2024-04-04 | Outpatient (REF) ==
[2024-04-04 11:23] LABS: HEMATOCRIT 27.9 % (42.0-52.0); HEMOGLOBIN 9.1 g/dl (13.5-17.5); MEAN CORPUSCULAR HEMOGLOBIN 29.3 pg (27.0-33.0); MEAN CORPUSCULAR HGB CONC 32.6 g/dl (32.0-36.5); MEAN CORPUSCULAR VOLUME 89.7 fl (80.0-96.0); PLATELET COUNT, AUTOMATED 415 10^3/uL (150-450); RED BLOOD COUNT 3.11 10^6/uL (4.30-6.10); WHITE BLOOD COUNT 10.5 10^3/uL (4.0-10.0)
[2024-04-04 11:48] LABS: CALCIUM LEVEL 9.3 MG/DL (8.3-10.6); CREATININE FOR GFR 1.32 MG/DL (0.70-1.30); GLOMERULAR FILTRATION RATE 54.7 (>35); POTASSIUM SERUM 5.3 MMOL/L (3.5-5.1)
== END ==
PROVIDERS: ATTEND Physician Assistant
DX: I95.9 Hypotension, unspecified (principal)

== ENCOUNTER → 2024-04-13 | Outpatient (REF) | payer MEDICARE | LOC: M RAD 08:50 → EDSTATUS 09:00 | PROVIDERS: ATTEND Physician Assistant | DX: I10 Essential (primary) hypertension (principal); J47.9 Bronchiectasis, uncomplicated; J84.10 Pulmonary fibrosis, unspecified; K80.20 Calculus of gallbladder without cholecystitis without obstruction; I25.84 Coronary atherosclerosis due to calcified coronary lesion; M19.012 Primary osteoarthritis, left shoulder ==

== ENCOUNTER → 2024-04-18 | Outpatient (REF) ==
[2024-04-18 10:16] LABS: HEMATOCRIT 35.2 % (42.0-52.0); HEMOGLOBIN 11.4 g/dl (13.5-17.5); MEAN CORPUSCULAR HEMOGLOBIN 29.1 pg (27.0-33.0); MEAN CORPUSCULAR HGB CONC 32.4 g/dl (32.0-36.5); MEAN CORPUSCULAR VOLUME 89.8 fl (80.0-96.0); PLATELET COUNT, AUTOMATED 408 10^3/uL (150-450); RED BLOOD COUNT 3.92 10^6/uL (4.30-6.10); WHITE BLOOD COUNT 11.8 10^3/uL (4.0-10.0)
[2024-04-18 10:43] LABS: BLOOD UREA NITROGEN 35 MG/DL (9-23); CARBON DIOXIDE LEVEL 25 MMOL/L (20-31); CHLORIDE LEVEL 97 MMOL/L (98-107); CREATININE FOR GFR 1.14 MG/DL (0.70-1.30); GLOMERULAR FILTRATION RATE > 60.0 (>35); GLUCOSE, FASTING 291 MG/DL (74-106); MAGNESIUM LEVEL 1.8 MG/DL (1.8-2.4); POTASSIUM SERUM 5.4 MMOL/L (3.5-5.1); SODIUM LEVEL 129 MMOL/L (136-145)
== END ==
PROVIDERS: ATTEND Physician Assistant
DX: I50.9 Heart failure, unspecified (principal)

== ENCOUNTER → 2024-04-27 | Outpatient (REF) ==
[2024-04-27 10:48] LABS: HEMOGLOBIN 9.9 g/dl (13.5-17.5); MEAN CORPUSCULAR HEMOGLOBIN 29.5 pg (27.0-33.0); MEAN CORPUSCULAR VOLUME 89.3 fl (80.0-96.0); PLATELET COUNT, AUTOMATED 263 10^3/uL (150-450); RED BLOOD COUNT 3.36 10^6/uL (4.30-6.10); WHITE BLOOD COUNT 8.3 10^3/uL (4.0-10.0)
== END ==
PROVIDERS: ATTEND Physician Assistant
DX: D64.9 Anemia, unspecified (principal)

== ENCOUNTER → 2024-05-02 | Outpatient (REF) | PROVIDERS: ATTEND Physician Assistant | DX: K92.2 Gastrointestinal hemorrhage, unspecified (principal) ==

== ENCOUNTER → 2024-05-04 | Outpatient (REF) ==
[2024-05-04 12:09] LABS: HEMATOCRIT 29.9 % (42.0-52.0); HEMOGLOBIN 9.7 g/dl (13.5-17.5); MEAN CORPUSCULAR HEMOGLOBIN 29.2 pg (27.0-33.0); MEAN CORPUSCULAR HGB CONC 32.4 g/dl (32.0-36.5); MEAN CORPUSCULAR VOLUME 90.1 fl (80.0-96.0); PLATELET COUNT, AUTOMATED 334 10^3/uL (150-450); RED BLOOD COUNT 3.32 10^6/uL (4.30-6.10); WHITE BLOOD COUNT 10.8 10^3/uL (4.0-10.0)
== END ==
PROVIDERS: ATTEND Physician Assistant
DX: D64.9 Anemia, unspecified (principal)

== ENCOUNTER → 2024-05-11 | Outpatient (REF) | PROVIDERS: ATTEND Physician Assistant | DX: D64.9 Anemia, unspecified (principal); Z53.8 Procedure and treatment not carried out for other reasons ==

== ENCOUNTER → 2024-05-15 | Outpatient (REF) | PROVIDERS: ATTEND Physician Assistant | DX: K92.2 Gastrointestinal hemorrhage, unspecified (principal) ==

== ENCOUNTER → 2024-05-17 | Outpatient (REF) ==
[2024-05-17 10:33] LABS: HEMATOCRIT 32.1 % (42.0-52.0); HEMOGLOBIN 10.2 g/dl (13.5-17.5); MEAN CORPUSCULAR HEMOGLOBIN 29.3 pg (27.0-33.0); MEAN CORPUSCULAR HGB CONC 31.8 g/dl (32.0-36.5); MEAN CORPUSCULAR VOLUME 92.2 fl (80.0-96.0); PLATELET COUNT, AUTOMATED 272 10^3/uL (150-450); RED BLOOD COUNT 3.48 10^6/uL (4.30-6.10); WHITE BLOOD COUNT 12.1 10^3/uL (4.0-10.0)
[2024-05-17 10:56] LABS: PERCENT SATURATION 28.6 % (19.7-50.0)
[2024-05-17 10:59] LABS: FOLATE 11.24 NG/ML (>5.4)
== END ==
PROVIDERS: ATTEND Physician Assistant
DX: D64.9 Anemia, unspecified (principal)

== ENCOUNTER → 2024-05-21 | Outpatient (REF) ==
[2024-05-21 11:40] LABS: HEMATOCRIT 33.2 % (42.0-52.0); HEMOGLOBIN 10.7 g/dl (13.5-17.5); MEAN CORPUSCULAR HEMOGLOBIN 29.7 pg (27.0-33.0); MEAN CORPUSCULAR HGB CONC 32.2 g/dl (32.0-36.5); MEAN CORPUSCULAR VOLUME 92.2 fl (80.0-96.0); PLATELET COUNT, AUTOMATED 278 10^3/uL (150-450); WHITE BLOOD COUNT 11.7 10^3/uL (4.0-10.0)
[2024-05-21 11:51] LABS: BLOOD UREA NITROGEN 27 MG/DL (9-23); CALCIUM LEVEL 8.7 MG/DL (8.3-10.6); CARBON DIOXIDE LEVEL 23 MMOL/L (20-31); CHLORIDE LEVEL 96 MMOL/L (98-107); CREATININE FOR GFR 1.16 MG/DL (0.70-1.30); GLOMERULAR FILTRATION RATE > 60.0 (>35); GLUCOSE, FASTING 321 MG/DL (74-106); MAGNESIUM LEVEL 1.7 MG/DL (1.8-2.4); POTASSIUM SERUM 5.8 MMOL/L (3.5-5.1); SODIUM LEVEL 129 MMOL/L (136-145)
== END ==
PROVIDERS: ATTEND Physician Assistant
DX: D64.9 Anemia, unspecified (principal)

== ENCOUNTER → 2024-05-28 | Outpatient (REF) ==
[2024-05-28 11:25] LABS: HEMATOCRIT 31.7 % (42.0-52.0); MEAN CORPUSCULAR HEMOGLOBIN 28.7 pg (27.0-33.0); MEAN CORPUSCULAR HGB CONC 31.5 g/dl (32.0-36.5); MEAN CORPUSCULAR VOLUME 91.1 fl (80.0-96.0); PLATELET COUNT, AUTOMATED 286 10^3/uL (150-450); RED BLOOD COUNT 3.48 10^6/uL (4.30-6.10); WHITE BLOOD COUNT 8.1 10^3/uL (4.0-10.0)
[2024-05-28 11:36] LABS: HEMOGLOBIN A1c 8.1 % (4.0-6.0)
[2024-05-28 11:49] LABS: CREATININE FOR GFR 1.39 MG/DL (0.70-1.30); GLOMERULAR FILTRATION RATE 51.5 (>35)
== END ==
PROVIDERS: ATTEND Physician Assistant
DX: E11.9 Type 2 diabetes mellitus without complications (principal)

== ENCOUNTER 2024-11-18 11:58 | Inpatient (IN) | payer MEDICARE ==
[~2024-11-18] VITALS: Ht 172.7 cm; Wt 74.3 kg
[~2024-11-18 11:58] MED LIST changes: -MIDO2.5T PO; +MIDO2.5T3 PO
[2024-11-18] MEDS ORDERED: CIPR250T3 PO (12:05)
[2024-11-18 13:12] LABS: BASO # 0.1 10^3/uL (0.0-0.2); BASO % 1.1 % (0.0-1.0); EOS # 0.4 10^3/uL (0.0-0.5); EOS % 4.5 % (0.0-3.0); HEMATOCRIT 38.3 % (42.0-52.0); HEMOGLOBIN 12.2 g/dl (13.5-17.5); LYMPH # 1.1 10^3/uL (1.5-5.0); LYMPH % 13.2 % (24.0-44.0); MEAN CORPUSCULAR HEMOGLOBIN 26.9 pg (27.0-33.0); MEAN CORPUSCULAR HGB CONC 31.9 g/dl (32.0-36.5); MEAN CORPUSCULAR VOLUME 84.4 fl (80.0-96.0); MONO # 0.8 10^3/uL (0.0-0.8); MONO % 9.8 % (2.0-8.0); NEUTROPHILS # 6.1 10^3/uL (1.5-8.5); NEUTROPHILS % 71.2 % (36.0-66.0); PLATELET COUNT, AUTOMATED 260 10^3/uL (150-450); RED BLOOD COUNT 4.54 10^6/uL (4.30-6.10); WHITE BLOOD COUNT 8.5 10^3/uL (4.0-10.0)
[2024-11-18 13:12] LABS: KETONE, URINE AUTO RFX NEGATIVE (NEGATIVE); LEUKOCYTE ESTERASE UR AUTO RFX 2+ (NEGATIVE); MUCUS, URINE RFX SMALL (NEGATIVE); NITRITE, URINE AUTO RFX NEGATIVE (NEGATIVE); RBC, URINE AUTO RFX TNTC /HPF (0-3); SQUAM EPITHELIAL CELL UR AURFX 1 /HPF (0-6); WBC, URINE AUTO RFX 130 /HPF (0-3)
[2024-11-18 13:40] LABS: ALBUMIN 3.5 G/DL (3.2-5.2); BILIRUBIN,DIRECT 0.3 MG/DL (<0.4); BILIRUBIN,TOTAL 1.1 MG/DL (0.3-1.2); CALCIUM LEVEL 8.4 MG/DL (8.3-10.6); CREATININE FOR GFR 1.47 MG/DL (0.70-1.30); GLOMERULAR FILTRATION RATE 48.2 (>35); POTASSIUM SERUM 5.1 MMOL/L (3.5-5.1); TOTAL PROTEIN 6.6 G/DL (5.7-8.2)
[2024-11-18 13:52] LABS: PROCALCITONIN 0.07 ng/ml
[2024-11-18] MEDS: NS 500 ML IV ONE (15:00)
[2024-11-18] MEDS: IPRATROPIUM 0.5MG/ALBUTEROL 2.5MG INH SOL UD 3ML (DUONEB) NEB ONE (15:12)
[2024-11-18] MEDS ORDERED: ISOVUE-370 76% 100ML VIAL As Ordered ONE (16:01)
[2024-11-18] MEDS: FUROSEMIDE 40MG/4ML VIAL IV ONE (18:35)
[2024-11-18] MEDS ORDERED: BISACODYL 10MG SUPP PR PRN (23:00)
[2024-11-18] MEDS: BISACODYL 10MG SUPP PR ONE (23:00)
[2024-11-18] MEDS ORDERED: GLUCAGON INJ 1MG VIAL SC PRN (23:20)
[2024-11-18] MEDS ORDERED: GLUCOSE 4 GM CHEW PO PRN (23:20)
[2024-11-18] MEDS ORDERED: DEXTROSE 50% 50ML SYRINGE IV PRN (23:20)
[2024-11-18] MEDS ORDERED: MIDO5TA PO (23:36)
[2024-11-18] MEDS ORDERED: TRAZ-257 PO (23:36)
[2024-11-18] MEDS ORDERED: NOVOINJ3 SC (23:55)
[2024-11-18] MEDS ORDERED: MUPI2OI TOP (23:55)
[2024-11-18] MEDS ORDERED: LANTINJ4 SC (23:55)
[2024-11-18] MEDS ORDERED: SUCR1TAB56 PO (23:55)
[2024-11-18] MEDS ORDERED: MIDO2.5T3 PO (23:55)
[2024-11-18] MEDS ORDERED: PANT40TA29 PO (23:55)
[2024-11-18] MEDS ORDERED: CLOP75TA2 PO (23:55)
[2024-11-19] MEDS ORDERED: HOME MED LIST COMPLETE! XX SCH (00:05)
[2024-11-19] MEDS: DOCUSATE SODIUM 100MG CAPSULE PO SCH (00:08)
[2024-11-19] MEDS: MIRALAX *UNIT DOSE* 17GM PACKET PO SCH (00:09)
[2024-11-19 02:27] LABS: MAGNESIUM LEVEL 2.1 MG/DL (1.8-2.4)
[2024-11-19 05:55] LABS: HEMATOCRIT 38.3 % (42.0-52.0); HEMOGLOBIN 12.5 g/dl (13.5-17.5); MEAN CORPUSCULAR HEMOGLOBIN 27.7 pg (27.0-33.0); MEAN CORPUSCULAR HGB CONC 32.6 g/dl (32.0-36.5); MEAN CORPUSCULAR VOLUME 84.7 fl (80.0-96.0); PLATELET COUNT, AUTOMATED 230 10^3/uL (150-450); RED BLOOD COUNT 4.52 10^6/uL (4.30-6.10); WHITE BLOOD COUNT 8.8 10^3/uL (4.0-10.0)
[2024-11-19 06:17] LABS: ALBUMIN 3.3 G/DL (3.2-5.2); BILIRUBIN,TOTAL 1.5 MG/DL (0.3-1.2); CALCIUM LEVEL 8.4 MG/DL (8.3-10.6); CHOLESTEROL RISK RATIO 1.89 (<5); CREATININE FOR GFR 1.61 MG/DL (0.70-1.30); GLOMERULAR FILTRATION RATE 43.4 (>35); LDL CHOLESTEROL 31.4 MG/DL (<100); MAGNESIUM LEVEL 1.9 MG/DL (1.8-2.4); POTASSIUM SERUM 4.5 MMOL/L (3.5-5.1); TOTAL PROTEIN 6.2 G/DL (5.7-8.2)
[2024-11-19] MEDS: FUROSEMIDE 40 MG TAB PO SCH (08:21)
[2024-11-19] MEDS: INSULIN LISPRO (NovoLOG) PER UNIT SC SCH ×2 (08:22→20:48)
[2024-11-19] MEDS ORDERED: FUROSEMIDE 20 MG TAB PO SCH (09:00)
[2024-11-19] MEDS: MAGNESIUM CITRATE 300ML BTL PO ONE (10:17)
[2024-11-19] MEDS: BISACODYL 10MG SUPP PR SCH (10:17)
[2024-11-19 11:42] VITALS: BP 151/85; TEMP 97.5; O2SAT 98
[2024-11-19 12:26] VITALS: O2SAT 98
[2024-11-19 16:00] VITALS: BP 125/67; TEMP 97.2; O2SAT 96
[2024-11-19] MEDS: FUROSEMIDE 40MG/4ML VIAL IV SCH (17:40)
[2024-11-19 19:44] VITALS: BP 127/69; TEMP 97.2; O2SAT 96
[2024-11-19] MEDS: SENOKOT S TAB PO SCH (20:48)
[2024-11-20] VITALS (8 sets, daily range): BP systolic 125–152; BP diastolic 66–81; TEMP 97.2–97.7; O2SAT 95–98
[2024-11-20] MEDS: traZODone 100 MG TAB PO SCH (00:16)
[2024-11-20 09:22] LABS: CALCIUM LEVEL 8.5 MG/DL (8.3-10.6); CREATININE FOR GFR 1.77 MG/DL (0.70-1.30); GLOMERULAR FILTRATION RATE 38.9 (>35); MAGNESIUM LEVEL 2.3 MG/DL (1.8-2.4); POTASSIUM SERUM 5.3 MMOL/L (3.5-5.1)
[2024-11-20] MEDS: PATIROMER SORBITEX CALCIUM 8.4 GM POWDER PACKET (VELTASSA) PO ONE (17:14)
[2024-11-20] MEDS: FUROSEMIDE 40 MG TAB PO SCH (17:14)
[2024-11-20] MEDS: SUCRALFATE 1 GM TAB PO SCH (17:14)
[2024-11-20 17:46] LABS: CALCIUM LEVEL 8.5 MG/DL (8.3-10.6); CREATININE FOR GFR 1.93 MG/DL (0.70-1.30); GLOMERULAR FILTRATION RATE 35.2 (>35); POTASSIUM SERUM 4.7 MMOL/L (3.5-5.1)
[2024-11-20] MEDS: RAMELTEON 8 MG TAB (ROZEREM) PO SCH (21:00)
[2024-11-21] VITALS (9 sets, daily range): BP systolic 91–119; BP diastolic 49–65; TEMP 97.2–97.5; O2SAT 92–97
[2024-11-21] MEDS: LEVEMIR (INSULIN DETEMIR) 1 UNITS/0.01ML SC SCH (08:18)
[2024-11-21] MEDS: buPROPion **XL** TABLET 150MG (WELLBUTRIN XL) PO SCH (08:18)
[2024-11-21] MEDS: PANTOPRAZOLE 40MG TAB (PROTONIX) PO SCH (08:19)
[2024-11-21] MEDS: FERROUS GLUCONATE 324 MG TAB PO SCH (08:19)
[2024-11-21] MEDS: HEPARIN SOD (PORCINE) 5000UNITS/ML 1ML VIAL/SYRINGE SC SCH (08:19)
[2024-11-21] MEDS: CETIRIZINE (ZyrTEC) 10 MG TAB PO SCH (08:19)
[2024-11-21] MEDS: CLOPIDOGREL 75 MG TAB PO SCH (08:19)
[2024-11-21] MEDS: DAPAGLIFLOZIN PROPANEDIOL 10MG TABLET (FARXIGA) PO SCH (08:27)
[2024-11-21] MEDS: METOPROLOL SUCC *XL* 25MG TAB (TopROL *XL*) PO SCH (08:27)
[2024-11-22 00:41] VITALS: BP 107/53; TEMP 97.5; O2SAT 96
[2024-11-22 03:56] VITALS: BP 109/51; TEMP 97.5; O2SAT 95
[2024-11-22 07:29] LABS: CALCIUM LEVEL 8.6 MG/DL (8.3-10.6); CREATININE FOR GFR 1.83 MG/DL (0.70-1.30); GLOMERULAR FILTRATION RATE 37.5 (>35)
[2024-11-22 08:00] VITALS: BP 108/51; TEMP 97.3; O2SAT 95
[2024-11-22] MEDS: FERRIC CARBOXYMALTOSE INJ 750 MG, VIAL MATE ADAPTER 1 EACH in NS 100 ML IV ONE (11:47)
[2024-11-22 12:00] VITALS: BP 119/61; TEMP 97.3; O2SAT 96
[2024-11-22 16:00] VITALS: BP 97/55; TEMP 97.3; O2SAT 97
[2024-11-22 22:25] VITALS: BP 101/62; TEMP 97.3; O2SAT 96
[2024-11-23 00:13] VITALS: BP 104/60; TEMP 97.9; O2SAT 92
[2024-11-23 04:09] VITALS: BP 109/62; TEMP 97.3; O2SAT 91
[2024-11-23 06:01] LABS: CALCIUM LEVEL 8.3 MG/DL (8.3-10.6); CREATININE FOR GFR 1.68 MG/DL (0.70-1.30); GLOMERULAR FILTRATION RATE 41.4 (>35); POTASSIUM SERUM 3.9 MMOL/L (3.5-5.1)
[2024-11-23 08:00] VITALS: BP 115/64; TEMP 97.2; O2SAT 97
[2024-11-23] MEDS: FUROSEMIDE 40 MG TAB PO SCH (11:11)
[2024-11-23 12:00] VITALS: BP 118/64; TEMP 97.3; O2SAT 96
[2024-11-23 16:00] VITALS: BP 117/63; TEMP 97.5; O2SAT 96
[2024-11-24 04:30] VITALS: BP 99/46; TEMP 97.2; O2SAT 95
[2024-11-24 06:10] LABS: CALCIUM LEVEL 8.3 MG/DL (8.3-10.6); CREATININE FOR GFR 1.91 MG/DL (0.70-1.30); GLOMERULAR FILTRATION RATE 35.7 (>35); MAGNESIUM LEVEL 2.1 MG/DL (1.8-2.4); POTASSIUM SERUM 5.2 MMOL/L (3.5-5.1)
[2024-11-24 08:00] VITALS: BP 121/60; TEMP 97.3; O2SAT 96
[2024-11-24] MEDS: FUROSEMIDE 40 MG TAB PO SCH (09:00)
[2024-11-24 12:00] VITALS: BP 122/59; TEMP 97.5; O2SAT 97
[2024-11-24] MEDS ORDERED: ACETAMINOPHEN 325 MG TAB PO PRN (14:55)
[2024-11-24 16:00] VITALS: BP 118/60; TEMP 97.3; O2SAT 96
[2024-11-24] MEDS: ASPIRIN 81MG ENTERIC TABLET PO SCH (18:06)
[2024-11-24] MEDS: ATORVASTATIN 10 MG TAB PO SCH (18:06)
[2024-11-24] MEDS: MIDODRINE 2.5 MG TAB PO SCH (18:06)
[2024-11-24 19:33] VITALS: BP 112/60; TEMP 97.5; O2SAT 97
[2024-11-25 00:04] VITALS: BP 111/59; TEMP 97.5; O2SAT 98
[2024-11-25 03:09] VITALS: BP 111/59; TEMP 97.7; O2SAT 97
[2024-11-25 06:42] LABS: CALCIUM LEVEL 8.3 MG/DL (8.3-10.6); CREATININE FOR GFR 1.91 MG/DL (0.70-1.30); GLOMERULAR FILTRATION RATE 35.7 (>35); POTASSIUM SERUM 4.1 MMOL/L (3.5-5.1)
[2024-11-25 08:00] VITALS: BP 111/58; TEMP 97.3; O2SAT 97
[2024-11-25] MEDS: MIDODRINE 5 MG TAB PO SCH (09:02)
[2024-11-25] MEDS: CYANOCOBALAMIN 500 MCG TAB PO SCH (09:02)
[2024-11-25] MEDS ORDERED: ASPI81TAEC PO (09:33)
[2024-11-25] MEDS: MIRALAX *UNIT DOSE* 17GM PACKET PO PRN (09:39)
[2024-11-25 12:00] VITALS: BP 118/55; TEMP 97.3; O2SAT 100
== END 2024-11-25 13:39 | disposition home health service (06) | DRG 698 ==
LOC: EDBD 11:58 → M ED 11:58 → M ED INP 22:59 → M MSPAV 11-19 11:36
PROVIDERS: ADMIT Family Medicine; ATTEND Internal Medicine
PROC: B246ZZZ Ultrasonography of Right and Left Heart (ICD-10-PCS; principal; 2024-11-19)
DX: T83.511A Infection and inflammatory reaction due to indwelling urethral catheter, initial encounter (principal); I50.23 Acute on chronic systolic (congestive) heart failure; I13.0 Hypertensive heart and chronic kidney disease with heart failure and stage 1 through stage 4 chronic kidney disease, or unspecified chronic kidney disease; N17.9 Acute kidney failure, unspecified; E87.1 Hypo-osmolality and hyponatremia; I25.10 Atherosclerotic heart disease of native coronary artery without angina pectoris; E78.5 Hyperlipidemia, unspecified; E11.22 Type 2 diabetes mellitus with diabetic chronic kidney disease; F32.A Depression, unspecified; E87.5 Hyperkalemia; N40.1 Benign prostatic hyperplasia with lower urinary tract symptoms; R33.9 Retention of urine, unspecified; N31.9 Neuromuscular dysfunction of bladder, unspecified; K59.00 Constipation, unspecified; I27.20 Pulmonary hypertension, unspecified; D64.9 Anemia, unspecified; N18.30 Chronic kidney disease, stage 3 unspecified; Z66 Do not resuscitate; Y84.6 Urinary catheterization as the cause of abnormal reaction of the patient, or of later complication, without mention of misadventure at the time of the procedure; N39.0 Urinary tract infection, site not specified; Z95.5 Presence of coronary angioplasty implant and graft; Z90.49 Acquired absence of other specified parts of digestive tract; Z79.82 Long term (current) use of aspirin; Z79.4 Long term (current) use of insulin; Z79.02 Long term (current) use of antithrombotics/antiplatelets; Z79.899 Other long term (current) drug therapy; Z88.0 Allergy status to penicillin

== ENCOUNTER 2024-12-14 12:24 | Inpatient (IN) | payer MEDICARE ==
[~2024-12-14] VITALS: Ht 172.7 cm; Wt 78.2 kg
[~2024-12-14 12:24] MED LIST changes: +ASPI81TAEC PO; +CIPR250T3 PO; +CLOP75TA2 PO; +LANTINJ4 SC; +MIDO5TA PO; +MUPI2OI TOP; +PANT40TA29 PO; +SUCR1TAB56 PO; +TRAZ-257 PO
[2024-12-14 14:02] LABS: BASO # 0.1 10^3/uL (0.0-0.2); BASO % 1.2 % (0.0-1.0); EOS # 0.3 10^3/uL (0.0-0.5); EOS % 3.4 % (0.0-3.0); HEMATOCRIT 41.8 % (42.0-52.0); HEMOGLOBIN 13.4 g/dl (13.5-17.5); LYMPH # 1.1 10^3/uL (1.5-5.0); LYMPH % 11.3 % (24.0-44.0); MEAN CORPUSCULAR HEMOGLOBIN 27.8 pg (27.0-33.0); MEAN CORPUSCULAR HGB CONC 32.1 g/dl (32.0-36.5); MEAN CORPUSCULAR VOLUME 86.7 fl (80.0-96.0); MONO # 0.9 10^3/uL (0.0-0.8); MONO % 9.2 % (2.0-8.0); NEUTROPHILS # 7.1 10^3/uL (1.5-8.5); NEUTROPHILS % 74.6 % (36.0-66.0); PLATELET COUNT, AUTOMATED 337 10^3/uL (150-450); RED BLOOD COUNT 4.82 10^6/uL (4.30-6.10); WHITE BLOOD COUNT 9.5 10^3/uL (4.0-10.0)
[2024-12-14 14:14] LABS: INR 1.03; PROTHROMBIN TIME 13.8 SECONDS (12.5-14.5)
[2024-12-14 14:31] LABS: CK-MB VALUE MASS < 1.0 NG/ML (<3.6)
[2024-12-14 14:35] LABS: ALBUMIN 3.6 G/DL (3.2-5.2); ALKALINE PHOSPHATASE 133 U/L (40-129); ALT/SGPT 9 U/L (7.0-40); AST/SGOT 17 U/L (<34); BILIRUBIN,DIRECT 0.3 MG/DL (<0.4); BLOOD UREA NITROGEN 32 MG/DL (9-23); CALCIUM LEVEL 8.7 MG/DL (8.3-10.6); CARBON DIOXIDE LEVEL 24 MMOL/L (20-31); CHLORIDE LEVEL 101 MMOL/L (98-107); CREATININE FOR GFR 1.54 MG/DL (0.70-1.30); GLOMERULAR FILTRATION RATE 45.7 (>35); GLUCOSE, FASTING 54 MG/DL (74-106); POTASSIUM SERUM 4.9 MMOL/L (3.5-5.1); SODIUM LEVEL 135 MMOL/L (136-145); TOTAL PROTEIN 6.8 G/DL (5.7-8.2)
[2024-12-14 14:36] LABS: THYROID STIMULATING HORMONE 1.244 uIU/ML (0.55-4.78); THYROXINE (T4) 5.7 UG/DL (4.5-10.9)
[2024-12-14 14:44] LABS: CPK CREATINE PHOSPHOKINASE 45 U/L (46-171); MB/CK RELATIVE INDEX 2.22 (< OR =4)
[2024-12-14 18:10] VITALS: O2SAT 78
[2024-12-14] MEDS: FUROSEMIDE 100MG/10ML VIAL IV ONE (18:54)
[2024-12-14] MEDS ORDERED: HOME MED LIST COMPLETE! XX SCH (20:55)
[2024-12-14] MEDS: PANTOPRAZOLE 40MG VIAL IV ONE (20:57)
[2024-12-14] MEDS: INSULIN LISPRO (NovoLOG) PER UNIT SC SCH (21:00)
[2024-12-14] MEDS ORDERED: GLUCOSE 4 GM CHEW PO PRN (22:00)
[2024-12-14] MEDS ORDERED: DEXTROSE 50% 50ML SYRINGE IV PRN (22:00)
[2024-12-14] MEDS ORDERED: GLUCAGON INJ 1MG VIAL SC PRN (22:00)
[2024-12-15] MEDS: HEPARIN SOD (PORCINE) 5000UNITS/ML 1ML VIAL/SYRINGE SC SCH (05:54)
[2024-12-15] MEDS: FUROSEMIDE 40MG/4ML VIAL IV SCH (05:55)
[2024-12-15 07:02] LABS: HEMATOCRIT 44.5 % (42.0-52.0); HEMOGLOBIN 14.1 g/dl (13.5-17.5); MEAN CORPUSCULAR HEMOGLOBIN 27.5 pg (27.0-33.0); MEAN CORPUSCULAR HGB CONC 31.7 g/dl (32.0-36.5); MEAN CORPUSCULAR VOLUME 86.7 fl (80.0-96.0); PLATELET COUNT, AUTOMATED 291 10^3/uL (150-450); RED BLOOD COUNT 5.13 10^6/uL (4.30-6.10); WHITE BLOOD COUNT 9.2 10^3/uL (4.0-10.0)
[2024-12-15 07:31] LABS: ALBUMIN 3.4 G/DL (3.2-5.2); ALKALINE PHOSPHATASE 137 U/L (40-129); ALT/SGPT < 9 U/L (7.0-40); AST/SGOT 12 U/L (<34); BILIRUBIN,TOTAL 1.1 MG/DL (0.3-1.2); BLOOD UREA NITROGEN 35 MG/DL (9-23); CALCIUM LEVEL 8.7 MG/DL (8.3-10.6); CARBON DIOXIDE LEVEL 22 MMOL/L (20-31); CHLORIDE LEVEL 100 MMOL/L (98-107); CREATININE FOR GFR 1.62 MG/DL (0.70-1.30); GLOMERULAR FILTRATION RATE 43.1 (>35); GLUCOSE, FASTING 212 MG/DL (74-106); POTASSIUM SERUM 4.7 MMOL/L (3.5-5.1); SODIUM LEVEL 135 MMOL/L (136-145); TOTAL PROTEIN 6.7 G/DL (5.7-8.2)
[2024-12-15] MEDS: INSULIN LISPRO (NovoLOG) PER UNIT SC SCH (08:27)
[2024-12-15 15:52] VITALS: BP 132/73; TEMP 97.5; O2SAT 100
[2024-12-15] MEDS: FUROSEMIDE 40 MG TAB PO SCH (16:58)
[2024-12-15 19:40] VITALS: BP 117/59; TEMP 98; O2SAT 99
[2024-12-15] MEDS: SENOKOT S TAB PO SCH (20:11)
[2024-12-16 00:40] VITALS: BP 123/60; TEMP 98.4; O2SAT 98
[2024-12-16 04:57] VITALS: BP 121/58; TEMP 97.4; O2SAT 98
[2024-12-16] MEDS: PANTOPRAZOLE 40MG TAB (PROTONIX) PO SCH (08:28)
[2024-12-16 09:43] VITALS: BP 120/60; TEMP 97.6; O2SAT 98
[2024-12-16 12:00] VITALS: BP 131/61; TEMP 96.9; O2SAT 98
[2024-12-16] MEDS: INSULIN LISPRO (NovoLOG) PER UNIT SC STA (12:09)
== END 2024-12-16 16:30 | disposition home health service (06) | DRG 291 ==
LOC: M ED 12:24 → M ED INP 20:31 → M MS4PR 12-15 15:33
PROVIDERS: ADMIT Family Medicine; ATTEND Family Medicine
DX: I11.0 Hypertensive heart disease with heart failure (principal); I50.23 Acute on chronic systolic (congestive) heart failure; E11.9 Type 2 diabetes mellitus without complications; I27.20 Pulmonary hypertension, unspecified; E78.5 Hyperlipidemia, unspecified; R33.9 Retention of urine, unspecified; N40.1 Benign prostatic hyperplasia with lower urinary tract symptoms; D64.9 Anemia, unspecified; I25.10 Atherosclerotic heart disease of native coronary artery without angina pectoris; B34.9 Viral infection, unspecified; F32.A Depression, unspecified; Z66 Do not resuscitate; Z86.73 Personal history of transient ischemic attack (TIA), and cerebral infarction without residual deficits; Z95.5 Presence of coronary angioplasty implant and graft; Z79.82 Long term (current) use of aspirin; Z79.4 Long term (current) use of insulin; Z79.899 Other long term (current) drug therapy; Z88.0 Allergy status to penicillin

== ENCOUNTER → 2025-05-10 | Outpatient (REF) | payer MEDICARE ==
[~2025-05-10] MED LIST changes: +COEN1CAP2 PO; -GLUC1KIT IM; +GLUC1VIA14 IM; +NATU1TAB5 PO; +NOVOINJ2 SC; +NYST100084 TOP; +NYST1POW3 TOP; +QUET1TAB17 PO; +VITA500045 PO
[2025-05-10 08:38] LABS: PLATELET COUNT, AUTOMATED 233 10^3/uL (150-450)
[2025-05-10 09:09] LABS: ALT/SGPT 13.0 U/L (7.0-40); AST/SGOT 15.0 U/L (<34); CALCIUM LEVEL 8.4 MG/DL (8.3-10.6); CARBON DIOXIDE LEVEL 25.0 MMOL/L (20-31); CHLORIDE LEVEL 99.0 MMOL/L (98-107); CHOLESTEROL LEVEL 124.0 MG/DL (<200); CHOLESTEROL RISK RATIO 2.51 (<5); CREATININE FOR GFR 1.65 MG/DL (0.70-1.30); GLOMERULAR FILTRATION RATE 39.7 (>35); LDL CHOLESTEROL 59.9 MG/DL (<100); NON-HDL-C 74.7 MG/DL; POTASSIUM SERUM 4.8 MMOL/L (3.5-5.1); SODIUM LEVEL 135.0 MMOL/L (136-145); TRIGLYCERIDES LEVEL 74.0 MG/DL (<150)
[2025-05-10 10:07] LABS: ESTIMATED AVERAGE GLUCOSE 120.0 MG/DL (60-110)
== END ==
PROVIDERS: ATTEND Physician Assistant Medical
DX: N18.9 Chronic kidney disease, unspecified (principal); E11.69 Type 2 diabetes mellitus with other specified complication; Z79.4 Long term (current) use of insulin; R63.5 Abnormal weight gain; E78.5 Hyperlipidemia, unspecified

== ENCOUNTER → 2025-05-17 | Outpatient (REF) | payer MEDICARE ==
[2025-05-17 11:34] LABS: CALCIUM LEVEL 8.3 MG/DL (8.3-10.6); CARBON DIOXIDE LEVEL 25.0 MMOL/L (20-31); CHLORIDE LEVEL 96.0 MMOL/L (98-107); CREATININE FOR GFR 1.58 MG/DL (0.70-1.30); GLOMERULAR FILTRATION RATE 41.8 (>35); POTASSIUM SERUM 4.6 MMOL/L (3.5-5.1); SODIUM LEVEL 131.0 MMOL/L (136-145)
== END ==
PROVIDERS: ATTEND Nurse Practitioner Family
DX: E11.649 Type 2 diabetes mellitus with hypoglycemia without coma (principal)

== ENCOUNTER 2025-05-20 17:02 | Emergency (ER) | payer MEDICARE ==
[~2025-05-20] VITALS: Ht 172.7 cm; Wt 127.7 kg
[~2025-05-20 17:02] MED LIST changes: -COEN1CAP2 PO; -NATU1TAB5 PO; -NOVOINJ2 SC; -NYST100084 TOP; -NYST1POW3 TOP; -QUET1TAB17 PO; -VITA500045 PO
[2025-05-20 18:45] LABS: BASO # 0.0 10^3/uL (0.0-0.2); BASO % 0.4 % (0.0-1.0); EOS # 0.0 10^3/uL (0.0-0.5); EOS % 0.1 % (0.0-3.0); LYMPH # 0.2 10^3/uL (1.5-5.0); LYMPH % 3.0 % (24.0-44.0); MONO # 0.6 10^3/uL (0.0-0.8); MONO % 7.8 % (2.0-8.0); NEUTROPHILS # 7.0 10^3/uL (1.5-8.5); NEUTROPHILS % 88.4 % (36.0-66.0); PLATELET COUNT, AUTOMATED 169 10^3/uL (150-450)
[2025-05-20 18:58] LABS: INR 1.15
[2025-05-20 19:07] LABS: ALT/SGPT 379.0 U/L (7.0-40); AST/SGOT 120.0 U/L (<34); CALCIUM LEVEL 8.6 MG/DL (8.3-10.6); CARBON DIOXIDE LEVEL 20.0 MMOL/L (20-31); CHLORIDE LEVEL 98.0 MMOL/L (98-107); CREATININE FOR GFR 1.77 MG/DL (0.70-1.30); GLOMERULAR FILTRATION RATE 36.5 (>35); POTASSIUM SERUM 4.6 MMOL/L (3.5-5.1); SODIUM LEVEL 132.0 MMOL/L (136-145)
[2025-05-20] MEDS ORDERED: NATU1TAB5 PO (19:31)
[2025-05-20] MEDS ORDERED: COEN1CAP2 PO (19:31)
[2025-05-20] MEDS ORDERED: ERGO125013 PO (19:31)
[2025-05-20] MEDS ORDERED: QUET1TAB17 PO (19:31)
[2025-05-20] MEDS ORDERED: NYST100084 TOP (19:48)
[2025-05-20] MEDS ORDERED: NYST1POW3 TOP (19:48)
[2025-05-20] MEDS ORDERED: NOVOINJ2 SC (19:53)
[2025-05-20] MEDS ORDERED: HOME MED LIST COMPLETE! XX SCH (19:55)
[2025-05-20 21:33] LABS: ALT/SGPT 353.0 U/L (7.0-40); AST/SGOT 106.0 U/L (<34)
[2025-05-21] MEDS: LanTUS (INSULIN GLARGINE INJ) 1 UNITS/0.01 ML SC SCH (02:31)
[2025-05-21] MEDS: NS (Normal Saline) 0.9% 1,000 ML IV SCH (08:55)
[2025-05-21 09:25] LABS: BASO # 0.1 10^3/uL (0.0-0.2); BASO % 0.7 % (0.0-1.0); EOS # 0.1 10^3/uL (0.0-0.5); EOS % 1.0 % (0.0-3.0); LYMPH # 0.4 10^3/uL (1.5-5.0); LYMPH % 5.2 % (24.0-44.0); MONO # 0.7 10^3/uL (0.0-0.8); MONO % 10.3 % (2.0-8.0); NEUTROPHILS # 5.5 10^3/uL (1.5-8.5); NEUTROPHILS % 82.5 % (36.0-66.0); PLATELET COUNT, AUTOMATED 155 10^3/uL (150-450)
[2025-05-21 09:34] LABS: ALT/SGPT 297.0 U/L (7.0-40); AST/SGOT 77.0 U/L (<34); CALCIUM LEVEL 8.5 MG/DL (8.3-10.6); CARBON DIOXIDE LEVEL 20.0 MMOL/L (20-31); CHLORIDE LEVEL 99.0 MMOL/L (98-107); CREATININE FOR GFR 1.73 MG/DL (0.70-1.30); GLOMERULAR FILTRATION RATE 37.5 (>35); POTASSIUM SERUM 4.4 MMOL/L (3.5-5.1); SODIUM LEVEL 134.0 MMOL/L (136-145)
[2025-05-21 15:09] VITALS: BP 136/65; TEMP 98.6; O2SAT 99
[2025-05-21] MEDS ORDERED: LanTUS (INSULIN GLARGINE INJ) 1 UNITS/0.01 ML SC SCH (21:00)
== END 2025-05-21 15:11 | disposition short-term general hospital (02) ==
LOC: M ED 17:02
DX: K80.51 Calculus of bile duct without cholangitis or cholecystitis with obstruction (principal); J91.8 Pleural effusion in other conditions classified elsewhere; I50.22 Chronic systolic (congestive) heart failure; E11.9 Type 2 diabetes mellitus without complications; I11.0 Hypertensive heart disease with heart failure; E78.5 Hyperlipidemia, unspecified; N40.0 Benign prostatic hyperplasia without lower urinary tract symptoms; F32.A Depression, unspecified; Z86.73 Personal history of transient ischemic attack (TIA), and cerebral infarction without residual deficits; Z88.0 Allergy status to penicillin; Z79.1 Long term (current) use of non-steroidal anti-inflammatories (NSAID); Z79.4 Long term (current) use of insulin; Z79.899 Other long term (current) drug therapy
CPT/HCPCS: 71045; 74181; 76705; 80048; 80053; 80076; 85025; 85610; 85730; 87486; 87581; 87633; 87798; 96360; 96361; 96372; 99285; J1815

== ENCOUNTER → 2025-06-10 | Outpatient (REF) | payer MEDICARE ==
[~2025-06-10] MED LIST changes: +COEN1CAP2 PO; +ERGO125013 PO; +NATU1TAB5 PO; +NOVOINJ2 SC; +NYST100084 TOP; +NYST1POW3 TOP; +QUET1TAB17 PO
[2025-06-10 11:56] LABS: BASO # 0.1 10^3/uL (0.0-0.2); BASO % 1.3 % (0.0-1.0); EOS # 0.2 10^3/uL (0.0-0.5); EOS % 3.0 % (0.0-3.0); LYMPH # 1.2 10^3/uL (1.5-5.0); LYMPH % 15.1 % (24.0-44.0); MONO # 0.4 10^3/uL (0.0-0.8); MONO % 4.9 % (2.0-8.0); NEUTROPHILS # 5.9 10^3/uL (1.5-8.5); NEUTROPHILS % 75.3 % (36.0-66.0); PLATELET COUNT, AUTOMATED 283 10^3/uL (150-450)
[2025-06-10 12:17] LABS: CALCIUM LEVEL 8.8 MG/DL (8.3-10.6); CARBON DIOXIDE LEVEL 25.0 MMOL/L (20-31); CHLORIDE LEVEL 98.0 MMOL/L (98-107); CREATININE FOR GFR 2.05 MG/DL (0.70-1.30); GLOMERULAR FILTRATION RATE 30.6 (>35); MAGNESIUM LEVEL 2.2 MG/DL (1.8-2.4); PHOSPHORUS LEVEL 4.4 MG/DL (2.4-5.1); POTASSIUM SERUM 4.6 MMOL/L (3.5-5.1); SODIUM LEVEL 136.0 MMOL/L (136-145)
== END ==
PROVIDERS: ATTEND Internal Medicine Nephrology
DX: I10 Essential (primary) hypertension (principal)

== ENCOUNTER 2025-06-15 20:02 | Emergency (ER) | payer MEDICARE ==
[~2025-06-15] VITALS: Ht 172.7 cm; Wt 181.0 kg
[2025-06-15] MEDS: OXYMETAZOLINE 0.05% NASAL SPRAY ONE (21:12)
[2025-06-15] MEDS: SILVER NITRATE APPLICATOR (1 = QTY 10) TOP ONE (23:16)
[2025-06-15 23:33] LABS: PLATELET COUNT, AUTOMATED 225 10^3/uL (150-450)
[2025-06-16 01:02] VITALS: BP 124/76; TEMP 98.2; O2SAT 96
== END 2025-06-16 01:04 | disposition home or self-care (01) ==
LOC: M ED 20:02
DX: R04.0 Epistaxis (principal); E11.9 Type 2 diabetes mellitus without complications; N40.0 Benign prostatic hyperplasia without lower urinary tract symptoms; Z88.0 Allergy status to penicillin; Z79.1 Long term (current) use of non-steroidal anti-inflammatories (NSAID); Z79.4 Long term (current) use of insulin; Z79.899 Other long term (current) drug therapy

== ENCOUNTER → 2025-07-22 | Outpatient (REF) | payer MEDICARE ==
[2025-07-22 11:08] LABS: PLATELET COUNT, AUTOMATED 281 10^3/uL (150-450)
[2025-07-22 11:36] LABS: ALT/SGPT 17.0 U/L (7.0-40); AST/SGOT 17.0 U/L (<34); CALCIUM LEVEL 8.8 MG/DL (8.3-10.6); CARBON DIOXIDE LEVEL 24.0 MMOL/L (20-31); CHLORIDE LEVEL 95.0 MMOL/L (98-107); CREATININE FOR GFR 1.82 MG/DL (0.70-1.30); GLOMERULAR FILTRATION RATE 35.3 (>35); IRON (FE) 79.0 UG/DL (65-175); POTASSIUM SERUM 4.6 MMOL/L (3.5-5.1); SODIUM LEVEL 131.0 MMOL/L (136-145)
[2025-07-22 12:03] LABS: ESTIMATED AVERAGE GLUCOSE 140.0 MG/DL (60-110)
== END ==
PROVIDERS: ATTEND Physician Assistant Medical
DX: E11.69 Type 2 diabetes mellitus with other specified complication (principal); D64.9 Anemia, unspecified; N18.9 Chronic kidney disease, unspecified; Z79.4 Long term (current) use of insulin